=== PATIENT | female | born 1945 | race Caucasian/White ===

== ENCOUNTER 2021-06-02 16:36 | Inpatient (IN) ==
[2021-06-02] MEDS ORDERED: IOPAMIDOL 100 ML BOTTLE IV ONE (16:37)
[2021-06-02] MEDS ORDERED: 0.9 % SODIUM CHLORIDE 1,000 ML IV ONE ×2 (18:15→21:19)
[2021-06-02 18:30] LABS: POC Blood Urea Nitrogen 23 mg/dL (6-20); POC CO2 24 mmol/L (22-30); POC Chloride 95 mEq/L (96-108); POC Creatinine 0.6 mg/dL (0.6-1.2); POC Glucose, Random 120 mg/dL (70-105); POC Hematocrit 45 % (36-48); POC Potassium 4.2 mEql/L (3.3-5.1); POC Sodium 131 mEq/L (133-145)
[2021-06-02 19:02] LABS: Hematocrit 42.7 % (34.1-44.9); Hemoglobin 13.9 g/dL (11.2-15.7); Mean Cell Volume 85.2 fL (80.0-100.0); Mean Corpuscular HGB Conc 32.6 g/dL (31.0-36.0); Mean Platelet Volume 10.6 fL (7.4-10.4); Platelet Count 229 K/mcL (140-440); RBC 5.01 M/mcL (3.59-5.38); Red Cell Distribution Width 16.8 % (11.5-14.5); WBC 3.6 K/mcL (4.5-11.0)
[2021-06-02] MEDS ORDERED: MAGNESIUM SULFATE 2 GM/50 ML BAG IV ONE (19:15)
[2021-06-02 19:28] LABS: Thyroid Stimulating Hormone 0.02 uIU/mL (0.27-5.01)
[2021-06-02] MEDS ORDERED: DILTIAZEM 25 MG/5 ML VIAL IV ONE (19:41)
[2021-06-02] MEDS ORDERED: HYDROcodone/APAP 10/325MG TABLET PO ONE (19:44)
[2021-06-02] MEDS ORDERED: APIXABAN 5 MG TABLET PO ONE (19:44)
--- NOTE | 2021-06-02 19:44 | Emergency Department Note ---
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 Per chart review, she was scheduled for an outpatient bronchoscopy for persistent occlusive neuroendocrine mass in the left chest on 05/31, but on screening labs was diagnosed with Covid 19, so did not undergo her procedure. Her oncologist is Dr. Vieira, and her silk screen operator is Dr. Mclaughlin. They have been evaluating her for possible lung infection and she states that she has been on several courses of oral antibiotic therapies without improvement. It appears that she has a persistent left lower lung consolidation and had been on Cefitin in April. She states that she has been coughing up thick cottage cheese like sputum. She does present in rapid A. fib today. She does have a history of atrial fibrillation on chronic Eliquis therapies. She is not on rate control medications. She denies heart palpitations or symptomatic rapid rhythm. O2 sats are in the high 80s to low 90s on room air. These improved to 94% with 2 L nasal cannula. She reports feeling increasing shortness of breath that is been worsening over weeks to months. She does feel that her breathing has wors ened even more since her COVID-19 diagnosis. She denies N/V/D or other GI symptoms. Related Data Home Medications Medication Instructions Recorded Confirmed lidocaine-prilocaine 2.5 %-2.5 % 1 g TOPICAL g 12/15/20 05/24/21 topical cream apixaban 5 mg tablet 5 mg PO BID tab 05/24/21 05/24/21 hydrocodone 5 mg-acetaminophen 325 tab PO PRN 05/24/21 05/24/21 mg tablet Previous Rx's Medication Instructions Recorded thyroid (pork) 120 mg tablet 120 mg PO QDAY #90 tab 09/21/20 (Aragon Thyroid) albuterol sulfate 90 mcg/actuation 2 puff INHALATION Q4H PRN #18 g 10/27/20 aerosol inhaler (Ventolin HFA) Allergies Allergy/AdvReac Type Severity Reaction Status Date / Time No Known Drug Allergies Allergy Verified 05/24/21 13:52 Review of Systems <Tarsha Shaikh PA-C - Last Filed: 06/02/21 21:15> ROS ROS Narrative: Narrative: All systems ED: reviewed and negative except as stated. PFSH <Tarsha Shaikh PA-C - Last Filed: 06/02/21 21:15> Narrative Patient History Narrative: Narrative: Medical/Surgical/Family History All Active Problems Atelectasis of left lung (Acute) History of primary malignant neoplasm of left lung (Acute) Malignant neoplasm of unspecified part of unspecified bronchus or lung (Acute) Malignant neoplasm of left main bronchus (Acute) Right hip pain (Acute) Small cell carcinoma (Acute) Medicare annual wellness visit, initial (Acute) Cough (Acute) Obstipation (Acute) Neck pain (Chronic) Arm pain (Chronic) Adrenal hyperplasia (Chronic) Pneumonia (Acute) Bronchitis (Acute) Microscopic hematuria (Acute) Generalized osteoarthritis (Chronic) Traumatic neuroma (Acute) Jaw pain (Chronic) Encounter for Health Maintenance Examination in Adult (Chronic) History of hysterectomy (Chronic) History of hand surgery (Chronic) History of colonoscopy (Chronic 11/28/09) History of appendectomy (Chronic) History of tobacco use (Chronic) Synovial cyst (Chronic) Acute poliomyelitis, poliovirus type I (Chronic) Osteoporosis screening (Chronic) Generalized osteoarthritis of unspecified site (Chronic 01/21/13) Numbness and tingling (Chronic) Multiple nevi (Chronic) Benign neoplasm of skin (Chronic) Low back pain (Chronic) Hypothyroidism (Chronic) Hyperthyroidism (Chronic) Colon polyps (Chronic) Cerumen impaction (Chronic) Medical History Acute poliomyelitis, poliovirus type I Past history, no residual Atelectasis of left lung Benign neoplasm of skin Mole History of malignant mole, multiple nevi, followed through Dr Terrance go Right cerumen impaction 12/26/11, instructed in use of ear bulb syringe. Colon polyps 11/28/2009 Colonoscopy--Dr. Rincon--3 hyperplastic polyps. 10-year sequence. 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 Jaw pain Low back pain history of, currently quiescent Malignant neoplasm of left main bronchus Malignant neoplasm of unspecified part of unspecified bronchus or lung Multiple nevi Multiple, followed through Dr Carlos Numbness and tingling Obstipation Osteoporosis screening Historical normal bone density in 2005 with normal Vitamin D level 10/2009. 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 Rincon--3 hyperplastic polyps. 10-year sequence. History of hand surgery 11/2010 Right second finger surgery 11/2010--Dr. Rivas. History of hysterectomy 1980 ovaries remain and bimanual is negative; breast exam stable, declines mammogram Family History Father Family history of coronary artery bypass graft CABG in his 60's, although did not take particularly good care of himself. Diabetes mellitus non insulin dependent Social History Smoking Status: Current every day smoker Alcohol Intake Frequency: a few times a week Substance Use: does not use Exam <Tarsha Shaikh PA-C - Last Filed: 06/02/21 21:15> Narrative Narrative: General: AOx3, NAD, nontoxic appearing. Pleasant and conversant. HEENT: PERRL, EOMI, normocephalic. Moist mucous membranes. Normal facies and normal dentition. Chest: Symmetric, no pain to palpation Respiratory: Coarse breath sounds throughout, crackles are noted in the bilateral bases. No respiratory distress. Unlabored breathing. Heart: Rapid rate and irregular rhythm, no murmurs/clicks/rubs. Abdomen: Non-tender, Non distended, normal bowel tones. No organomegaly. Extremities: Warm and well perfused. No edema. DP 2+ bilaterally. No venous stasis. Neuro: No focal deficits. Cranial nerves II-XII grossly normal. Skin: Warm dry, no rashes or lesions, no cyanosis. Psych: Normal mood and affect Heme/Lymph: No abnormal bruising Course <Tarsha Shaikh PA-C - Last Filed: 06/02/21 21:15> Course Course Narrative: 75-year-old female with history of non-small cell lung cancer and persistent left lower lobe consolidation with recent diagnosis of Covid presents with weakn ess and shortness of breath. Reevaluation(s) Reevaluation #1: EKG shows rapid atrial fibrillation with a rate of [address] acute ischemic ST findings and QTC of 424. Chest x-ray shows left lung mass, right lung appears clear without evidence of infiltrates or effusions. CBC with slightly low white blood cell count of 3600 with neutrophils of 80 Chem-8 panel with sodium 131 Troponin is less than 0.01 Patient received 1 L of IV fluids and her heart rate nay elevated at 134 bpm. Vital Signs Vital signs: Vital Signs Pulse Rate 90 06/02/21 16:37 Respiratory Rate 20 06/02/21 16:37 Blood Pressure 140/97 06/02/21 16:37 Pulse Oximetry (%) 98 06/02/21 16:37 Pulse Rate 133 H 06/03/21 00:27 Respiratory Rate 26 H 06/03/21 00:27 Blood Pressure 115/88 06/03/21 00:07 Pulse Oximetry (%) 92 06/03/21 00:27 MDM <Tarsha Shaikh PA-C - Last Filed: 06/02/21 21:15> MDM Narrative Medical decision making narrative: Chronic left lower lobe consolidation History of non-small cell lung cancer with neuroendocrine features COVID-19 infection Rapid atrial fibrillation Shortness of breath Weakness I discussed this patient with Dr. Hanna at change of shift. He has ordered a CTA of the chest to rule out PE given this patient's high risk. Please see his note for further details and plan of care. Blood cultures and lactic acid have been ordered and are pending to rule out sepsis. Lab Data Result diagrams: 06/02/21 18:05 Labs: Lab Results 06/02/21 06/02/21 06/02/21 Range/Units 18:05 18:05 18:05 WBC 3.6 L (4.5-11.0) K/mcL RBC 5.01 (3.59-5.38) M/mcL Hgb 13.9 (11.2-15.7) g/dL Hct 42.7 (34.1-44.9) % POC Hct 45 (36-48) % MCV 85.2 (80.0-100.0) fL MCH 27.7 (26.0-34.0) pg MCHC 32.6 (31.0-36.0) g/dL RDW 16.8 H (11.5-14.5) % Plt Count 229 (140-440) K/mcL MPV 10.6 H (7.4-10.4) fL Seg Neutrophils % 80 H (38-78) % Lymphocytes % 13 L (15-49) % Monocytes % (Manual) 6 (1-12) % Basophils % (Manual) 1 (0-2) % Platelet Estimate Normal (Normal) RBC Morphology Abnormal A (Normal) Anisocytosis 1+ A (None Seen) POC Sodium 131 L (133-145) mEq/L POC Potassium 4.2 (3.3-5.1) mEql/L POC Chloride 95 L (96-108) mEq/L POC Total CO2 24 (22-30) mmol/L POC BUN 23 H (6-20) mg/dL POC Creatinine 0.6 (0.6-1.2) mg/dL POC Glucose 120 H (70-105) mg/dL POC WB Ioniz Calcium 1.10 L (1.16-1.32) mmEq/L Troponin T < 0.01 (<0.03) ng/mL Procalcitonin (<0.10) ng/mL TSH 0.02 L (0.27-5.01) uIU/mL 06/02/21 Range/Units 18:05 WBC (4.5-11.0) K/mcL RBC (3.59-5.38) M/mcL Hgb (11.2-15.7) g/dL Hct (34.1-44.9) % POC Hct (36-48) % MCV (80.0-100.0) fL MCH (26.0-34.0) pg MCHC (31.0-36.0) g/dL RDW (11.5-14.5) % Plt Count (140-440) K/mcL MPV (7.4-10.4) fL Seg Neutrophils % (38-78) % Lymphocytes % (15-49) % Monocytes % (Manual) (1-12) % Basophils % (Manual) (0-2) % Platelet Estimate (Normal) RBC Morphology (Normal) Anisocytosis (None Seen) POC Sodium (133-145) mEq/L POC Potassium (3.3-5.1) mEql/L POC Chloride (96-108) mEq/L POC Total CO2 (22-30) mmol/L POC BUN (6-20) mg/dL POC Creatinine (0.6-1.2) mg/dL POC Glucose (70-105) mg/dL POC WB Ioniz Calcium (1.16-1.32) mmEq/L Troponin T (<0.03) ng/mL Procalcitonin 0.07 (<0.10) ng/mL TSH (0.27-5.01) uIU/mL Discharge Plan Patient/Caregiver Discharge Instructions Pt seen by GRINDING WHEEL INSPECTOR/PA only: No Patient Disposition: Still a Patient Condition: Undetermined Follow up with: Charles Mackay MD, FAAFP [Primary Care Provider] - Prescriptions: No Action thyroid (pork) [Aragon Thyroid] 120 mg tablet 120 mg PO QDAY Qty: 90 3RF albuterol sulfate [Ventolin HFA] 90 mcg/actuation HFA aerosol inhaler 2 puff inhalation Q4H PRN (Reason: bronchospasm) Qty: 18 8RF hydrocodone-acetaminophen 5-325 mg tablet PO PRN0RF lidocaine-prilocaine 2.5-2.5 % cream 1 g topical 0RF Label Comments: APPLY GENEROURSY 30 MUINUTES PRIOR TO PORT ACCESS apixaban 5 mg tablet 5 mg PO BID 0RF
[2021-06-02] MEDS ORDERED: HYDROcodone/APAP 5/325MG TABLET PO ONE (19:50)
[2021-06-02 20:29] LABS: Anisocytosis 1+ (None Seen); Basophils % (Manual) 1 % (0-2); Lymphocytes % 13 % (15-49); Monocytes % (Manual) 6 % (1-12); Platelet Estimate NORMAL (Normal); RBC Morphology ABNORMAL (Normal); Segmented Neutrophils % 80 % (38-78)
[2021-06-02] MEDS ORDERED: VANCOMYCIN 1,250 MG in 0.9 % SODIUM CHLORIDE 250 ML IV ONE (23:44)
[2021-06-02] MEDS ORDERED: PIPERACILLIN SODIUM/TAZOBACTAM 4.5 GM in DEXTROSE 5% IN WATER 50 ML IV ONE (23:44)
[2021-06-03] MEDS ORDERED: VANCOMYCIN 500 MG VIAL IV ONE (00:16)
[2021-06-03] MEDS ORDERED: DEXAMETHASONE 10 MG/ML VIAL IV ONE (01:08)
[2021-06-03] MEDS ORDERED: ACETAMINOPHEN 325 MG TABLET PO PRN (01:09)
[2021-06-03] MEDS ORDERED: ONDANSETRON 4 MG/2 ML VIAL IV PRN ×2 (01:09→09:04)
--- NOTE | 2021-06-03 01:22 | Emergency Department Note ---
HPI General Chief complaint: Shortness of Breath/Dyspnea Stated complaint: short of breath Time Seen by Provider: 06/02/21 20:03 Source: patient Mode of arrival: ambulatory Limitations: no limitations History of Present Illness HPI Narrative: Narrative: This patient was signed out to me by AGUILAR Shaikh. For full details please see her H&P. In brief this patient presented w/ SOB, tachycardia, hypoxia in setting of known COVID19 w/ recently in remission lung CA. She reports persistent and worsening SOB over the past week since this Dx of COVID. She notes that she has a chronic cough productive of thick phlegm, has been unchanged. She has been treated w/ two long rounds of abx for this w/o improvement and her guard chief was planning on a possible biopsy when COVID was discovered as part of her preop testing. Related Data Home Medications Medication Instructions Recorded Confirmed lidocaine-prilocaine 2.5 %-2.5 % 1 g TOPICAL g 12/15/20 05/24/21 topical cream apixaban 5 mg tablet 5 mg PO BID tab 05/24/21 05/24/21 hydrocodone 5 mg-acetaminophen 325 tab PO PRN 05/24/21 05/24/21 mg tablet Previous Rx's Medication Instructions Recorded thyroid (pork) 120 mg tablet 120 mg PO QDAY #90 tab 09/21/20 ([facility] Thyroid) albuterol sulfate 90 mcg/actuation 2 puff INHALATION Q4H PRN #18 g 10/27/20 aerosol inhaler (Ventolin HFA) Allergies Allergy/AdvReac Type Severity Reaction Status Date / Time No Known Drug Allergies Allergy Verified 05/24/21 13:52 Review of Systems ROS ROS Narrative: Narrative: All systems ED: reviewed and negative except as stated. PFSH Narrative Patient History Narrative: Narrative: Medical/Surgical/Family History All Active Problems (Updated 06/03/21 @ 01:25 by Kwame Hanna MD) Acute dyspnea (Acute) Pneumonia due to 2019 novel coronavirus (Acute) Lung cancer (Acute) Atrial fibrillation with rapid ventricular response (Acute) Atelectasis of left lung (Acute) History of primary malignant neoplasm of left lung (Acute) Malignant neoplasm of unspecified part of unspecified bronchus or lung (Acute) Malignant neoplasm of left main bronchus (Acute) Right hip pain (Acute) Small cell carcinoma (Acute) Medicare annual wellness visit, initial (Acute) Cough (Acute) Obstipation (Acute) Neck pain (Chronic) Arm pain (Chronic) Adrenal hyperplasia (Chronic) Pneumonia (Acute) Bronchitis (Acute) Microscopic hematuria (Acute) Generalized osteoarthritis (Chronic) Traumatic neuroma (Acute) Jaw pain (Chronic) Encounter for Health Maintenance Examination in Adult (Chronic) History of hysterectomy (Chronic) History of hand surgery (Chronic) History of colonoscopy (Chronic 11/28/09) History of appendectomy (Chronic) History of tobacco use (Chronic) Synovial cyst (Chronic) Acute poliomyelitis, poliovirus type I (Chronic) Osteoporosis screening (Chronic) Generalized osteoarthritis of unspecified site (Chronic 01/21/13) Numbness and tingling (Chronic) Multiple nevi (Chronic) Benign neoplasm of skin (Chronic) Low back pain (Chronic) Hypothyroidism (Chronic) Hyperthyroidism (Chronic) Colon polyps (Chronic) Cerumen impaction (Chronic) Medical History Acute poliomyelitis, poliovirus type I Past history, no residual Atelectasis of left lung Benign neoplasm of skin Mole History of malignant mole, multiple nevi, followed through Dr Carlos Cerumen impaction Right cerumen impaction 12/26/11, instructed in use of ear bulb syringe. Colon polyps 11/28/2009 Colonoscopy--Dr. Rincon--3 hyperplastic polyps. 10-year sequence. 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 Jaw pain Low back pain history of, currently quiescent Malignant neoplasm of left main bronchus Malignant neoplasm of unspecified part of unspecified bronchus or lung Multiple nevi Multiple, followed through Dr Carlos Numbness and tingling Obstipation Osteoporosis screening Historical normal bone density in 2005 with normal Vitamin D level 10/2009. 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 10-year sequence. History of hand surgery 11/2010 Right second finger surgery 11/2010--Dr. Rivas. History of hysterectomy 1980 ovaries remain and bimanual is negative; breast exam stable, declines mammogram Family History Father Family history of coronary artery bypass graft CABG in his 60's, although did not take particularly good care of himself. Diabetes mellitus non insulin dependent Social History Smoking Status: Current every day smoker Alcohol Intake Frequency: a few times a week Substance Use: does not use Exam Narrative Narrative: Narrative: General Limitations: no limitations General appearance: Present alert and in no apparent distress Head Head: Present atraumatic and normocephalic ENT ENT: Present normal oropharynx and mucous membranes moist Chest Chest: Present normal inspection and symmetric chest wall rise Respiratory Respiratory: Present normal lung sounds bilaterally; Absent respiratory distress Cardiovascular Cardiovascular: Present irregular rhythm, +S1, +S2 and other (2+ B/L radial pulses); Absent systolic murmur or diastolic murmur Adbominal Abdominal: Present soft and normal bowel sounds; Absent distention or tenderness Extremities Extremities: Absent pedal edema Neurological Neurological: Present alert and oriented X3 Psychiatric Psychiatric: Present normal affect Skin Skin: Present warm (WNL) and dry Course Vital Signs Vital signs: Vital Signs Pulse Rate 90 06/02/21 16:37 Respiratory Rate 20 06/02/21 16:37 Blood Pressure 140/97 06/02/21 16:37 Pulse Oximetry (%) 98 06/02/21 16:37 Pulse Rate 133 H 06/03/21 00:27 Respiratory Rate 22 06/03/21 01:45 Blood Pressure 106/73 06/03/21 01:31 Pulse Oximetry (%) 93 06/03/21 01:31 [facility] MDM Narrative Medical decision making narrative: Narrative: 75 yo F w/ h/o lung CA in remission, hyperthyroidism, p/w SOB, hypoxia, cough in setting of recent COVID19 Dx. DDx - Sepsis, PNA, COVID19, PE, ACS, arrhythmia Pt was initially seen and managed by AGUILAR Shaikh. She started the pt on IVF, which brought the HR down from 160 to 130. She was concerned for ongoing RVR and gave a dose of mag and diltiazem which had minimal effect on HR. She checked labs which showed mild hyponatremia, and a mild leukopenia. EKG showed no ischemia. I then assumed care. On taking sign out I was concerned for the possibility of PE, and checked a CTA chest which showed no PE. There was an infiltrate and evidence of COVID PNA. Given the tachycardia, I checked a lactate and blood cultures and added on empiric abx w/ vanc and zosyn for broad coverage. I also added on a second 1L NS bolus as her BUN:Cr ratio suggested dehydration and this would also fit w/ sepsis fluids. To help delineate between COVID PNA alone vs COVID w/ bacterial PNA, I checked a procalcitonin. This was WNL. Clinically this fit w/ her presentation and I felt that COVID was the main coach driver in her presentation today. I thus added on decadron. She tolerated all interventions well and was accepted by Dr Boudreaux for admission. Lab Data Result diagrams: 06/02/21 18:05 Labs: Lab Results 06/02/21 06/02/21 06/02/21 Range/Units 18:05 18:05 18:05 WBC 3.6 L (4.5-11.0) K/mcL RBC 5.01 (3.59-5.38) M/mcL Hgb 13.9 (11.2-15.7) g/dL Hct 42.7 (34.1-44.9) % POC Hct 45 (36-48) % MCV 85.2 (80.0-100.0) fL MCH 27.7 (26.0-34.0) pg MCHC 32.6 (31.0-36.0) g/dL RDW 16.8 H (11.5-14.5) % Plt Count 229 (140-440) K/mcL MPV 10.6 H (7.4-10.4) fL Seg Neutrophils % 80 H (38-78) % Lymphocytes % 13 L (15-49) % Monocytes % (Manual) 6 (1-12) % Basophils % (Manual) 1 (0-2) % Platelet Estimate Normal (Normal) RBC Morphology Abnormal A (Normal) Anisocytosis 1+ A (None Seen) POC Sodium 131 L (133-145) mEq/L POC Potassium 4.2 (3.3-5.1) mEql/L POC Chloride 95 L (96-108) mEq/L POC Total CO2 24 (22-30) mmol/L POC BUN 23 H (6-20) mg/dL POC Creatinine 0.6 (0.6-1.2) mg/dL POC Glucose 120 H (70-105) mg/dL POC WB Ioniz Calcium 1.10 L (1.16-1.32) mmEq/L Troponin T < 0.01 (<0.03) ng/mL Procalcitonin (<0.10) ng/mL TSH 0.02 L (0.27-5.01) uIU/mL 06/02/21 Range/Units 18:05 WBC (4.5-11.0) K/mcL RBC (3.59-5.38) M/mcL Hgb (11.2-15.7) g/dL Hct (34.1-44.9) % POC Hct (36-48) % MCV (80.0-100.0) fL MCH (26.0-34.0) pg MCHC (31.0-36.0) g/dL RDW (11.5-14.5) % Plt Count (140-440) K/mcL MPV (7.4-10.4) fL Seg Neutrophils % (38-78) % Lymphocytes % (15-49) % Monocytes % (Manual) (1-12) % Basophils % (Manual) (0-2) % Platelet Estimate (Normal) RBC Morphology (Normal) Anisocytosis (None Seen) POC Sodium (133-145) mEq/L POC Potassium (3.3-5.1) mEql/L POC Chloride (96-108) mEq/L POC Total CO2 (22-30) mmol/L POC BUN (6-20) mg/dL POC Creatinine (0.6-1.2) mg/dL POC Glucose (70-105) mg/dL POC WB Ioniz Calcium (1.16-1.32) mmEq/L Troponin T (<0.03) ng/mL Procalcitonin 0.07 (<0.10) ng/mL TSH (0.27-5.01) uIU/mL CC TIME Critical Care Time Attestation: Approximately 35 minutes of critical care time was used in order to assess and manage the high probability of imminent or life threatening deterioration to CVS, pulmonary systems which required my highest level of preparedness and interventions with frequent patient assessments. This time is excluding time spent on separately billable procedures. Discharge Plan Patient/Caregiver Discharge Instructions Pt seen by HYDROBLASTER/PA only: No Clinical Impression: Acute dyspnea, Pneumonia due to 2019 novel coronavirus, Lung cancer, Atrial fibrillation with rapid ventricular response Patient Disposition: Xfer As Inpt ([facility]) Condition: Serious Discharge Date/Time: 06/03/21 01:52
--- NOTE | 2021-06-03 06:51 | XRay Report ---
HISTORY: COVID pneumonia, history of lung cancer, smoker with shortness of breath FINDINGS: The left lung is smaller than the right and there is tenting of the left diaphragm. There is dense consolidation medially in the left upper thorax which may be a combination of atelectasis, scar or possibly residual tumor. There is a generalized ill-defined alveolar opacity throughout the left lung. There is pleural thickening over the apex. The heart size is normal. A subtle alveolar infiltrate is present in the right lower lobe. Patient has a Port-A-Cath placed through the right internal jugular vein into the superior vena cava. IMPRESSION: Possible pneumonia superimposed upon underlying scarring or atelectasis following treatment of previously seen large left-sided lung cancer Interpreted and Authenticated by: Aleksey Jacob 06/03/21
--- NOTE | 2021-06-03 06:57 | Cat Scan Report ---
History, shortness of breath, COVID pneumonia, post radiation and chemotherapy for left-sided lung cancer TECHNIQUE: Following injection of intravenous nonionic contrast the chest was scanned during the arterial phase from the thoracic inlet to the diaphragm. Sagittal and coronal reformats were created. The radiation exposure was limited using dose reduction technology. FINDINGS: There is significant volume loss of the left upper lobe and superior segment of lingula with multiple air bronchograms in these regions. This may be scar and atelectasis following the prior radiation and chemotherapy. The large bulky tumor seen medially in the left upper lobe which invaded the left hilum and mediastinum has shrank and can no longer be seen separate from the surrounding scar tissue. No pathologically enlarged lymph nodes are seen at this time. The encasement of the left upper lobe pulmonary artery and vein seen on the prior CT done on 09/20/20 has resolved. No new lung mass is seen. There is moderate fibrosis and inflammation in the lingula and left lower lobe. Superimposed upon this there are groundglass alveolar infiltrates in both lungs. This is most apparent in the right lung where there is no underlying fibrosis. There is a mosaic distribution of alveolar infiltrates in the right upper lobe, right middle lobe and right lower lobe. Mosaic infiltrates are also seen in the lingula and left lower lobe. There is a tiny left-sided pleural effusion. Pulmonary arteries are normal without evidence of emboli. The heart size is normal. No pericardial effusion is present. The left adrenal gland is enlarged and measures 1.5 x 3.3 cm and there is hyperplasia of the right adrenal. The adrenals are unchanged from the prior CT. Visualized portions of the liver appears normal without evidence of metastasis. IMPRESSION: COVID pneumonia superimposed upon underlying scar tissue after treatment for left-sided lung cancer No residual tumor is detected. Interpreted and Authenticated by: Aleksey Jacob 06/03/21
[2021-06-03] MEDS ORDERED: METOPROLOL TARTRATE 5 MG/5 ML VIAL IV STA (08:05)
[2021-06-03] MEDS: METOPROLOL TARTRATE 5 MG/5 ML VIAL IV SCH (08:40)
[2021-06-03] MEDS ORDERED: HYDROcodone/APAP (PP) 5/325MG TABLET (#4) PO PRN (08:59)
[2021-06-03] MEDS ORDERED: METOPROLOL TARTRATE 25 MG TABLET PO SCH (09:00)
[2021-06-03] MEDS ORDERED: THYROID 120 MG PO SCH (09:00)
[2021-06-03] MEDS ORDERED: HYDROcodone/APAP 5/325MG TABLET PO PRN (09:04)
[2021-06-03] MEDS ORDERED: IPRATROPIUM/ALBUTEROL 3 ML AMPUL.NEB NEB PRN (09:04)
--- NOTE | 2021-06-03 09:15 | Internal Med History&Physical ---
HPI History of Present Illness Patient information: Note initiated : 06/03/21 at 9:10 am Service Date, if different from initiated Date: [] Patient: Calista Dunn a 75 y/o F admitted on 06/03/21 for short of breath. Chief Complaint: [shortness of breath] Chief complaint: shortness of breath History of present illness: Ms. Dunn is a 75 year old F history of left sided lung cancer, permanent atrial fibrillation, hypothyroidism, p/w shortness of breath and oxygen desaturation. She has had shortness of breath and productive cough with yellow sputum since August 2020 following lung biopsy. Last night, her oxygen saturation was in the 60s on room air, so she decided to come to our ED for further evaluation. She also has mild left sided chest pain since August,, stable. Denies fever, chills, or sweating. She was tested positive for CoVID pneumonia last , 05/25/21. She is fully vaccinated against CoVID pneumonia. Vital signs at ED presentation significant for tachycardia and tachypnea with HR and RR in the 130s and mid 20s, respectively. Labs significant for lack of leukocytosis with WBC 3.6. Serum sodium level 131. CXR and CT chest w/o consistent with CoVID pneumonia without signs of superimposing bacterial infection or pulmonary embolism. Constitutional Constitutional: Absent chills, excessive sweating, fatigue, fever(s) or weakness EENT Eyes: Absent blurry vision, change in vision, loss of vision or other visual disturbances Ears: Absent decreased hearing or tinnitus Nose, mouth and throat: Absent abnormal hearing, dry mouth, headache(s), nasal congestion or sore throat Cardiovascular Cardiovascular: Present chest pain; Absent chest pain at rest, edema, irregular heart rhythm or palpatations Respiratory Respiratory: Present cough, dyspnea and excessive phlegm production; Absent wheezing Gastrointestinal Gastrointestinal: Absent abdominal pain, constipation, diarrhea, nausea or vomiting Musculoskeletal Musculoskeletal: Absent back pain, deformity, limited range of motion, muscle cramps, muscle weakness or numbness Integumentary Integumentary: Absent lesions, rash or wounds Neurological Neurological: Absent focal weakness, headache(s) or numbness Psychiatric Psychiatric: Absent anxiety, depression or hallucinations PFSH PFSH All Active Problems (Updated 06/03/21 @ 09:19 by Bridger Boudreaux MD) Hyponatremia (Acute) Acute dyspnea (Acute) Pneumonia due to 2019 novel coronavirus (Acute) Lung cancer (Acute) Atrial fibrillation with rapid ventricular response (Acute) Atelectasis of left lung (Acute) History of primary malignant neoplasm of left lung (Acute) Malignant neoplasm of unspecified part of unspecified bronchus or lung (Acute) Malignant neoplasm of left main bronchus (Acute) Right hip pain (Acute) Small cell carcinoma (Acute) Medicare annual wellness visit, initial (Acute) Cough (Acute) Obstipation (Acute) Neck pain (Chronic) Arm pain (Chronic) Adrenal hyperplasia (Chronic) Pneumonia (Acute) Bronchitis (Acute) Microscopic hematuria (Acute) Generalized osteoarthritis (Chronic) Traumatic neuroma (Acute) Jaw pain (Chronic) Encounter for Health Maintenance Examination in Adult (Chronic) History of hysterectomy (Chronic) History of hand surgery (Chronic) History of colonoscopy (Chronic 11/28/09) History of appendectomy (Chronic) History of tobacco use (Chronic) Synovial cyst (Chronic) Acute poliomyelitis, poliovirus type I (Chronic) Osteoporosis screening (Chronic) Generalized osteoarthritis of unspecified site (Chronic 01/21/13) Numbness and tingling (Chronic) Multiple nevi (Chronic) Benign neoplasm of skin (Chronic) Low back pain (Chronic) Hypothyroidism (Chronic) Hyperthyroidism (Chronic) Colon polyps (Chronic) Cerumen impaction (Chronic) Medical History Acute poliomyelitis, poliovirus type I Past history, no residual Atelectasis of left lung Benign neoplasm of skin Mole History of malignant mole, multiple nevi, followed through Dr Carlos Cerumen impaction Right cerumen impaction 12/26/11, instructed in use of ear bulb syringe. Colon polyps 11/28/2009 Colonoscopy--Dr. Rincon--3 hyperplastic polyps. 10-year sequence. 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 Jaw pain Low back pain history of, currently quiescent Malignant neoplasm of left main bronchus Malignant neoplasm of unspecified part of unspecified bronchus or lung Multiple nevi Multiple, followed through Dr Carlos Numbness and tingling Obstipation Osteoporosis screening Historical normal bone density in 2005 with normal Vitamin D level 10/2009. 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 Rincon--3 hyperplastic polyps. 10-year sequence. History of hand surgery 11/2010 Right second finger surgery 11/2010--Dr. Rivas. History of hysterectomy 1980 ovaries remain and bimanual is negative; breast exam stable, declines mammogram Family History Father Family history of coronary artery bypass graft CABG in his 60's, although did not take particularly good care of himself. Diabetes mellitus non insulin dependent Social History household members: spouse housing: house lives independently: Yes marital status: occupational status: retired other: 5 children smoking status: Current every day smoker tobacco type: cigarettes per day: 15 pack-years: 50 quit status: not considering quitting counseling given: patient declined alcohol intake frequency: a few times a week substance use type: does not use MEDS/ALLERGIES Home Medications and Allergies Home Medications Medication Instructions Recorded Confirmed Type thyroid (pork) 120 mg tablet 120 mg PO QDAY #90 tab 09/21/20 06/03/21 Rx ([place] Thyroid) albuterol sulfate 90 mcg/actuation 2 puff INHALATION Q4H PRN #18 g 10/27/20 06/03/21 Rx aerosol inhaler (Ventolin HFA) lidocaine-prilocaine 2.5 %-2.5 % See Rx Instructions .ROUTE 12/15/20 06/03/21 History topical cream .COMPLEX PRN g apixaban 5 mg tablet 5 mg PO BID tab 05/24/21 06/03/21 History hydrocodone 5 mg-acetaminophen 325 1 tab PO BIDP PRN 05/24/21 06/03/21 History mg tablet Allergies Allergy/AdvReac Type Severity Reaction Status Date / Time No Known Drug Allergies Allergy Verified 05/24/21 13:52 EXAM Constitutional Vitals: Temp Pulse Resp BP Pulse Ox 36.4 C 77 16 132/84 93 06/03/21 08:00 06/03/21 08:00 06/03/21 08:00 06/03/21 08:00 06/03/21 08:00 General appearance: cooperative and no acute distress Head Head exam: Present atraumatic and normocephalic Eye Eye exam: Present EOMI and PERRL ENT ENT exam: Present mucous membranes moist, normal exam and normal external ear exam Neck Neck exam: Present normal inspection; Absent lymphadenopathy, tenderness or thyromegaly Respiratory Respiratory exam: Present decreased breath sounds and rhonchi; Absent accessory muscle use, respiratory distress or wheezes Cardiovascular Cardiovascular exam: Present irregular rhythm and tachycardia; Absent JVD GI/Abdominal GI/Abdominal exam: Present normal bowel sounds and soft; Absent organomegaly or tenderness Extremities Exam Extremities exam: Present full ROM, normal capillary refill and normal inspection; Absent tenderness Neurological Exam Neurological exam: Present alert, CN II-XII intact and oriented X3; Absent motor sensory deficit Psychiatric Psychiatric exam: Present normal affect and normal mood; Absent anxious or depressed Skin Skin exam: Present dry and intact DATA Data Completed and Pending Labs: Labs from last 24 hours 06/02/21 06/02/21 06/02/21 18:05 18:05 18:05 WBC 3.6 L RBC 5.01 Hgb 13.9 Hct 42.7 POC Hct MCV 85.2 MCH 27.7 MCHC 32.6 RDW 16.8 H Plt Count 229 MPV 10.6 H Seg Neutrophils % 80 H Lymphocytes % 13 L Monocytes % (Manual) 6 Basophils % (Manual) 1 Platelet Estimate Normal RBC Morphology Abnormal A Anisocytosis 1+ A POC Sodium POC Potassium POC Chloride POC Total CO2 POC BUN POC Creatinine POC Glucose POC WB Ioniz Calcium Troponin T < 0.01 Procalcitonin 0.07 TSH 06/02/21 18:05 WBC RBC Hgb Hct POC Hct 45 MCV MCH MCHC RDW Plt Count MPV Seg Neutrophils % Lymphocytes % Monocytes % (Manual) Basophils % (Manual) Platelet Estimate RBC Morphology Anisocytosis POC Sodium 131 L POC Potassium 4.2 POC Chloride 95 L POC Total CO2 24 POC BUN 23 H POC Creatinine 0.6 POC Glucose 120 H POC WB Ioniz Calcium 1.10 L Troponin T Procalcitonin TSH 0.02 L A/P Assessment and plan (1) Pneumonia due to 2019 novel coronavirus: Status: Acute (2) Lung cancer: Status: Acute (3) Atrial fibrillation with rapid ventricular response: Status: Acute (4) Hyponatremia: Status: Acute (5) Hypothyroidism: Status: Chronic Comment: H/O hyperthyroidism, 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 CoVID pneumonia: Admit to inpatient med surg telemetry Isolation: airborne and contact Supplemental oxygen therapy titrate to achieve spo2>=92%, currently at 2L/min Lactic acid Inflammatory markers cbc w/ auto diff in the morning to trend WBC level Dexamethasone Remdesivir Eliquis Hold any diuretics for the time being given soft blood pressure Robitussin DM PRN cough Tylenol PRN fever DuoNEB NEB PRN wheezing/SOB 2. 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 Hypothyroidism: Continue thyroid replacement therapy 4. Hyponatremia: Saline lock Repeat CMP in the morning to trend serum sodium level 5. h/o left sided lung cancer: Continue to follow up with oncologist outpatient GI ppx: not currently indicated DVT ppx: Eliquis Code status: DNI Prognosis: guarded Disposition: inpatient med surg telemetry Time Spent With Patient Time: Total time spent is greater than 50% in coordination of care (as documented) at patient's floor/unit and/or counseling patient: Total time spent with greater than 50% in coordination of care (as documented) at patient's floor/unit and/or counseling patient:: Greater than 35 minutes QUALITY Stroke Symptom Onset Unknown: No VTE Deep Vein Thrombosis/Pulmonary Embolism Present on Admission: No
[2021-06-03] MEDS: THYROID, PORK 60 MG TABLET PO SCH ×2 (10:04→10:45)
[2021-06-03] MEDS: THYROID PORK 120 MG PO SCH (10:05)
[2021-06-03] MEDS ORDERED: guaiFENesin/DEXTROMETHORPHAN ORAL SOL PO PRN (10:05)
[2021-06-03 10:32] LABS: ALT/SGPT 18 U/L (<40); AST/SGOT 42 U/L (<32); Albumin 2.9 gm/dL (3.2-5.2); Albumin/Globulin Ratio 0.9 (1.0-2.3); Alkaline Phosphatase 54 U/L (39-117); Bilirubin,Direct < 0.2 mg/dL (0-0.3); Bilirubin,Total 0.3 mg/dL (0.1-1.0); Blood Urea Nitrogen 10 mg/dL (8-23); Calcium 8.4 mg/dL (8.6-10.4); Carbon Dioxide 17 mmol/L (22-30); Chloride 97 mmol/L (96-108); Globulin 3.1 gm/dL (2.2-3.7); Glomerular Filtration Rate 100; Glucose 172 mg/dL (70-105); Lactate Dehydrogenase 419 U/L (135-225); Phosphorous 2.2 mg/dL (2.5-4.5); Triglycerides 76 mg/dL (<150); Uric Acid 3.6 mg/dL (2.5-8.0)
[2021-06-03] MEDS: APIXABAN 5 MG TABLET PO SCH ×2 (10:58→20:59)
[2021-06-03] MEDS: DEXAMETHASONE 4 MG TABLET PO SCH (10:58)
[2021-06-03] MEDS ORDERED: REMDESIVIR 200 MG in 0.9 % SODIUM CHLORIDE 250 ML IV ONE ×2 (11:00→12:00)
[2021-06-03] MEDS: HYDROcodone/APAP 5/325MG TABLET PO PRN ×2 (13:08→21:02)
[2021-06-03] MEDS: 0.9 % SODIUM CHLORIDE 10 ML SYRINGE IV SCH ×2 (14:11→22:00)
[2021-06-03] MEDS: METOPROLOL TARTRATE 5 MG/5 ML VIAL IV PRN ×3 (15:45→16:00)
[2021-06-03] MEDS ORDERED: METOPROLOL TARTRATE 5 MG/5 ML VIAL IV PRN (18:46)
[2021-06-03] MEDS ORDERED: METOPROLOL TARTRATE 50 MG TABLET ONE (19:06)
[2021-06-03] MEDS: LORazepam 1 MG TABLET PO PRN (19:43)
[2021-06-03] MEDS: DOCUSATE SODIUM 100 MG CAPSULE PO SCH (20:59)
[2021-06-03] MEDS: SENNOSIDES 1 TABLET PO SCH (20:59)
[2021-06-03] MEDS: ZOLPIDEM 5 MG TABLET PO PRN (21:00)
[2021-06-03] MEDS: METOPROLOL TARTRATE 25 MG TABLET PO SCH (21:00)
[2021-06-04] MEDS: 0.9 % SODIUM CHLORIDE 10 ML SYRINGE IV SCH ×3 (05:59→21:03)
[2021-06-04 07:03] LABS: Basophils # (Auto) 0.01 K/mcL (0.00-0.30); Basophils % (Auto) 0.2 % (0.0-2.0); Eosinophils # (Auto) 0 K/mcL (0.00-0.70); Eosinophils % (Auto) 0 % (0.0-7.0); Hematocrit 38.1 % (34.1-44.9); Hemoglobin 12.2 g/dL (11.2-15.7); Lymphocytes # (Auto) 0.43 K/mcL (1.50-4.80); Lymphocytes % (Auto) 9.6 % (15.5-49.0); Mean Platelet Volume 10.9 fL (7.4-10.4); Monocytes # (Auto) 0.29 K/mcL (0.10-0.90); Monocytes % (Auto) 6.5 % (1.0-12.0); Neutrophils % (Auto) 83.7 % (38.0-78.0); Platelet Count 237 K/mcL (140-440); RBC 4.43 M/mcL (3.59-5.38); Red Cell Distribution Width 17.1 % (11.5-14.5); WBC 4.5 K/mcL (4.5-11.0)
[2021-06-04 07:12] LABS: ALT/SGPT 29 U/L (<40); AST/SGOT 59 U/L (<32); Albumin 2.8 gm/dL (3.2-5.2); Alkaline Phosphatase 65 U/L (39-117); Bilirubin,Total 0.2 mg/dL (0.1-1.0); Blood Urea Nitrogen 16 mg/dL (8-23); Calcium 8.6 mg/dL (8.6-10.4); Carbon Dioxide 20 mmol/L (22-30); Chloride 103 mmol/L (96-108); Globulin 2.7 gm/dL (2.2-3.7); Glomerular Filtration Rate 100; Glucose 161 mg/dL (70-105); Lactate Dehydrogenase 416 U/L (135-225); Phosphorous 2.6 mg/dL (2.5-4.5)
[2021-06-04 07:26] LABS: INR 1.4 (0.9-1.1); Prothrombin Time 17.4 sec (11.9-14.5)
[2021-06-04] MEDS: THYROID PORK 120 MG PO SCH (07:32)
[2021-06-04] MEDS: METOPROLOL TARTRATE 25 MG TABLET PO SCH ×2 (09:23→21:03)
[2021-06-04] MEDS: APIXABAN 5 MG TABLET PO SCH ×2 (09:23→21:04)
[2021-06-04] MEDS: DEXAMETHASONE 4 MG TABLET PO SCH (09:23)
[2021-06-04] MEDS: REMDESIVIR 100 MG in 0.9 % SODIUM CHLORIDE 250 ML IV SCH (09:23)
[2021-06-04] MEDS: DOCUSATE SODIUM 100 MG CAPSULE PO SCH ×2 (09:23→21:02)
[2021-06-04] MEDS: HYDROcodone/APAP 5/325MG TABLET PO PRN ×2 (09:53→21:04)
--- NOTE | 2021-06-04 10:01 | Internal Med Progress Note ---
SUBJECTIVE Subjective Patient information: Note initiated : 06/04/21 at 9:57 am Service Date, if different from initiated Date: [] Patient: Calista Dunn a 75 y/o F admitted on 06/03/21 for short of breath. Chief Complaint: [] Interval history: Ms. Dunn is a 75 year old F history of left sided lung cancer, permanent atrial fibrillation, hypothyroidism, p/w shortness of breath and oxygen desaturation. She has had shortness of breath and productive cough with yellow sputum since August 2020 following lung biopsy. Last night, her oxygen saturation was in the 60s on room air, so she decided to come to our ED for further evaluation. She also has mild left sided chest pain since August,, stable. Denies fever, chills, or sweating. She was tested positive for CoVID pneumonia last , 05/25/21. She is fully vaccinated against CoVID pneumonia. Vital signs at ED presentation significant for tachycardia and tachypnea with HR and RR in the 130s and mid 20s, respectively. Labs significant for lack of leukocytosis with WBC 3.6. Serum sodium level 131. CXR and CT chest w/o consistent with CoVID pneumonia without signs of superimposing bacterial infection or pulmonary embolism. 06/04: Afebrile overnight. Blood cultures no growth to date. On 6L/min oxygen overnight and now. Denies SOB. Denies cough or sputum production or wheezing. Denies chest pain. Denies fever, chills, or sweating. On Dexamethasone and Remdesivir. Constitutional Vitals: Vital Signs Temp Pulse Resp BP Pulse Ox 35.9 C L 118 H 20 137/107 95 06/04/21 08:01 06/04/21 06:01 06/04/21 08:01 06/04/21 08:01 06/04/21 08:01 Period Temp Pulse Resp BP Sys/Thomas Pulse Ox Last 24 Hr 35.8 C-36.9 C 39-138 16-36 94-137/59-107 85-98 Intake and Output 06/03/21 06/04/21 06/04/21 21:59 05:59 13:59 Intake Total 400 790 Output Total 1450 702 250 Balance -1050 88 -250 Weight 66.678 kg Intake & Output: Intake & Output 06/03/21 06/04/21 06/04/21 21:59 05:59 13:59 Intake Total 400 790 Output Total 1450 702 250 Balance -1050 88 -250 Weight 66.678 kg Intake: Nourishment/Supplement quantity 240 (ml) IV 250 Veklury 200 mg In Sodium 250 Chloride 0.9% 250 ml @ 500 mls/ hr IV ONCE ONE Rx#:[id number] Oral 400 300 Output: Void Amount 1450 700 250 # of times incontinent of urine 2 Other: Meal Lunch Percent of Meal Consumed 75% Nourishment/Supplement name Ensure Urine Appearance Clear Clear Clear Urine Color Bright Yellow Bright Yellow Dark Yellow Urine Odor Normal Normal Stool Size Small Stool Color Brown Stool Consistency Formed # Voids 1 # Bowel Movements 1 General appearance: average body habitus, cooperative and no acute distress Head Head exam: Present atraumatic and normal inspection Eye Eye exam: Present normal appearance ENT ENT exam: Present mucous membranes moist, normal exam and normal external ear exam Additional comments: Nasal cannula in place Neck Neck exam: Present normal inspection Respiratory Respiratory exam: Present rhonchi Cardiovascular Cardiovascular exam: Present irregular rhythm and tachycardia GI/Abdominal GI/Abdominal exam: Present normal bowel sounds Back Exam Back exam: Present normal inspection Neurological Exam Neurological exam: Present alert and oriented X3 Skin Skin exam: Present intact and warm OBJ DATA Labs CBC & Chem 7: 06/04/21 05:56 06/04/21 05:56 Labs: Abnormal Lab Results 06/04/21 06/04/21 06/04/21 05:56 05:56 05:42 WBC RDW 17.1 H MPV 10.9 H Neut % (Auto) 83.7 H Lymph % (Auto) 9.6 L Lymph # (Auto) 0.43 L Seg Neutrophils % Lymphocytes % RBC Morphology Anisocytosis PT 17.4 H INR 1.4 H Fibrinogen 440 H D-Dimer 0.56 H POC Sodium Sodium POC Chloride Carbon Dioxide 20 L POC BUN Creatinine 0.4 L Glucose 161 H POC Glucose Calcium POC WB Ioniz Calcium Phosphorus Ferritin 1937.0 H AST 59 H Lactate Dehydrogenase 416 H C-Reactive Protein 5.60 H Total Protein 5.5 L Albumin 2.8 L Albumin/Globulin Ratio TSH 06/03/21 06/02/21 06/02/21 09:27 18:05 18:05 WBC 3.6 L RDW 16.8 H MPV 10.6 H Neut % (Auto) Lymph % (Auto) Lymph # (Auto) Seg Neutrophils % 80 H Lymphocytes % 13 L RBC Morphology Abnormal A Anisocytosis 1+ A PT INR Fibrinogen D-Dimer POC Sodium 131 L Sodium 128 L POC Chloride 95 L Carbon Dioxide 17 L POC BUN 23 H Creatinine 0.4 L Glucose 172 H POC Glucose 120 H Calcium 8.4 L POC WB Ioniz Calcium 1.10 L Phosphorus 2.2 L Ferritin AST 42 H Lactate Dehydrogenase 419 H C-Reactive Protein Total Protein Albumin 2.9 L Albumin/Globulin Ratio 0.9 L TSH 0.02 L Meds: Medications Acetaminophen (Acetaminophen 325 Mg Tablet) 650 mg PO Q6HP PRN; Protocol PRN Reason: Per Pain Protocol/Fever > 101 Hydrocodone Bitart/Acetaminophen (Hydrocodone/Apap 5/325mg Tablet) 2 tab PO BIDP PRN; Protocol PRN Reason: Pain Last Admin: 06/04/21 09:53 Dose: 2 tab Documented by: Albuterol/Ipratropium (Ipratropium/Albuterol 3 Ml Ampul.Neb) 3 ml NEB Q4HRT PRN PRN Reason: Wheezing Apixaban (Apixaban 5 Mg Tablet) 5 mg PO BID [facility] Last Admin: 06/04/21 09:23 Dose: 5 mg Documented by: Dexamethasone (Dexamethasone 4 Mg Tablet) 6 mg PO DAILY [facility] Last Admin: 06/04/21 09:23 Dose: 6 mg Documented by: Docusate Sodium (Docusate Sodium 100 Mg Capsule) 100 mg PO BID [facility] Last Admin: 06/04/21 09:23 Dose: 100 mg Documented by: Guaifenesin (Guaifenesin/Dextromethorphan Oral Katerine) 10 ml PO Q4HP PRN PRN Reason: Cough REMDESIVIR 100 mg/ Sodium (Chloride) 250 mls @ 500 mls/hr IV DAILY@1000 [facility] Stop: 06/07/21 10:29 Last Admin: 06/04/21 09:23 Dose: 500 mls/hr Documented by: Lorazepam (Lorazepam 1 Mg Tablet) 1 mg PO Q6HP PRN PRN Reason: ANXIETY/SEDATION Last Admin: 06/03/21 19:43 Dose: 1 mg Documented by: Metoprolol Tartrate (Metoprolol Tartrate 25 Mg Tablet) 50 mg PO BID [facility] Last Admin: 06/04/21 09:23 Dose: 50 mg Documented by: Ondansetron HCl (Ondansetron 4 Mg/2 Ml Vial) 4 mg IV Q6HP PRN PRN Reason: Nausea And Vomiting Thyroid, Pork 120 Mg (Tablet) 1 dose PO ACB [facility] Last Admin: 06/04/21 07:32 Dose: 1 dose Documented by: Senna (Sennosides 1 Tablet) 2 tab PO HS [facility] Last Admin: 06/03/21 20:59 Dose: 2 tab Documented by: Sodium Chloride (0.9 % Sodium Chloride 10 Ml Syringe) 10 ml IV Q8 [facility] Last Admin: 06/04/21 05:59 Dose: 10 ml Documented by: Zolpidem Tartrate (Zolpidem 5 Mg Tablet) 5 mg PO HSP PRN PRN Reason: Insomnia Last Admin: 06/03/21 21:00 Dose: 5 mg Documented by: A/P Assessment and plan (1) Pneumonia due to 2019 novel coronavirus: Status: Acute (2) Lung cancer: Status: Acute (3) Atrial fibrillation with rapid ventricular response: Status: Acute (4) Hyponatremia: Status: Acute (5) Hypothyroidism: Status: Chronic Comment: H/O hyperthyroidism, 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 CoVID pneumonia: Stays in inpatient med surg telemetry Isolation: airborne and contact Supplemental oxygen therapy titrate to achieve spo2>=92%, currently at 6L/min Lactic acid Inflammatory markers Blood cultures, no growth to date cbc w/ auto diff in the morning to trend WBC level Dexamethasone Remdesivir Eliquis Hold any diuretics for the time being given soft blood pressure Robitussin DM PRN cough Tylenol PRN fever DuoNEB NEB PRN wheezing/SOB 2. Permanent atrial fibrillation w/ RVR: Lopressor 5mg IV q5min X3 doses PRN HR>120bpm, hold if SBP<90 and/or DBP<50mmHg Metoprolol tartrate 50mg PO BID Eliquis Continue thyroid replacement therapy traffic monitor specialist 3. Hypothyroidism: Continue thyroid replacement therapy 4. Hyponatremia: RESOLVED Saline lock Repeat CMP in the morning to trend serum sodium level 5. h/o left sided lung cancer: Continue to follow up with oncologist outpatient GI ppx: not currently indicated DVT ppx: Eliquis Code status: Full Prognosis: guarded Disposition: inpatient PCU telemetry Time Spent With Patient Time: Total time spent is greater than 50% in coordination of care (as documented) at patient's floor/unit and/or counseling patient: Total time spent with greater than 50% in coordination of care (as documented) at patient's floor/unit and/or counseling patient:: Greater than 35 minutes QUALITY Stroke Symptom Onset Unknown: No VTE Deep Vein Thrombosis/Pulmonary Embolism Present on Admission: No
[2021-06-04] MEDS: METOPROLOL TARTRATE 5 MG/5 ML VIAL IV PRN ×3 (19:28→21:01)
[2021-06-04] MEDS ORDERED: METOPROLOL TARTRATE 5 MG/5 ML VIAL IV ONE ×2 (19:32→19:59)
[2021-06-04] MEDS: LORazepam 1 MG TABLET PO PRN (19:58)
[2021-06-04] MEDS: SENNOSIDES 1 TABLET PO SCH (21:03)
[2021-06-04] MEDS: ZOLPIDEM 5 MG TABLET PO PRN (23:19)
[2021-06-05] MEDS: 0.9 % SODIUM CHLORIDE 10 ML SYRINGE IV SCH ×5 (05:54→22:50)
[2021-06-05 06:31] LABS: Basophils # (Auto) 0.01 K/mcL (0.00-0.30); Basophils % (Auto) 0.1 % (0.0-2.0); Eosinophils # (Auto) 0 K/mcL (0.00-0.70); Eosinophils % (Auto) 0 % (0.0-7.0); Hematocrit 41.6 % (34.1-44.9); Hemoglobin 12.9 g/dL (11.2-15.7); Lymphocytes # (Auto) 0.44 K/mcL (1.50-4.80); Lymphocytes % (Auto) 4.4 % (15.5-49.0); Mean Cell Volume 88.3 fL (80.0-100.0); Mean Platelet Volume 11.1 fL (7.4-10.4); Monocytes # (Auto) 0.61 K/mcL (0.10-0.90); Monocytes % (Auto) 6.1 % (1.0-12.0); Neutrophils % (Auto) 89.4 % (38.0-78.0); Platelet Count 258 K/mcL (140-440); RBC 4.71 M/mcL (3.59-5.38); Red Cell Distribution Width 17.5 % (11.5-14.5)
[2021-06-05] MEDS: THYROID PORK 120 MG PO SCH (06:42)
[2021-06-05 07:09] LABS: ALT/SGPT 41 U/L (<40); AST/SGOT 62 U/L (<32); Albumin 3.1 gm/dL (3.2-5.2); Albumin/Globulin Ratio 1.1 (1.0-2.3); Alkaline Phosphatase 87 U/L (39-117); Bilirubin,Total 0.3 mg/dL (0.1-1.0); Blood Urea Nitrogen 22 mg/dL (8-23); Carbon Dioxide 21 mmol/L (22-30); Chloride 98 mmol/L (96-108); Globulin 2.9 gm/dL (2.2-3.7); Glomerular Filtration Rate 93; Glucose 146 mg/dL (70-105); Phosphorous 3.7 mg/dL (2.5-4.5)
[2021-06-05] MEDS: METOPROLOL TARTRATE 25 MG TABLET PO SCH (08:04)
[2021-06-05] MEDS: APIXABAN 5 MG TABLET PO SCH ×2 (08:04→19:46)
[2021-06-05] MEDS: DEXAMETHASONE 4 MG TABLET PO SCH (08:04)
[2021-06-05] MEDS: DOCUSATE SODIUM 100 MG CAPSULE PO SCH ×2 (08:04→19:46)
[2021-06-05] MEDS ORDERED: DILTIAZEM 25 MG/5 ML VIAL IV ONE ×2 (08:24→08:37)
--- NOTE | 2021-06-05 08:29 | Internal Med Progress Note ---
SUBJECTIVE Subjective Patient information: Note initiated : 06/05/21 at 8:25 am Service Date, if different from initiated Date: [] Patient: Calista Dunn a 75 y/o F admitted on 06/03/21 for short of breath. Chief Complaint: [] Interval history: Ms. uDnn is a 75 year old F history of left sided lung cancer, permanent atrial fibrillation, hypothyroidism, p/w shortness of breath and oxygen desaturation. She has had shortness of breath and productive cough with yellow sputum since August 2020 following lung biopsy. Last night, her oxygen saturation was in the 60s on room air, so she decided to come to our ED for further evaluation. She also has mild left sided chest pain since August,, stable. Denies fever, chills, or sweating. She was tested positive for CoVID pneumonia last , 05/25/21. She is fully vaccinated against CoVID pneumonia. Vital signs at ED presentation significant for tachycardia and tachypnea with HR and RR in the 130s and mid 20s, respectively. Labs significant for lack of leukocytosis with WBC 3.6. Serum sodium level 131. CXR and CT chest w/o consistent with CoVID pneumonia without signs of superimposing bacterial infection or pulmonary embolism. 06/04: Afebrile overnight. Blood cultures no growth to date. On 6L/min oxygen overnight and now. Denies SOB. Denies cough or sputum production or wheezing. Denies chest pain. Denies fever, chills, or sweating. On Dexamethasone and Remdesivir. 06/05: Afebrile overnight. Blood cultures no growth to date. Currently on 15L/min nonrebreather oxygen. Tachycardia with HR in the 150s bpm. c/o anxiety and agitation. c/o SOB with cough. Denies chest pain. Denies fever, chills, or sweating. On Dexamethasone and Remdesivir. Will given Cardizem IV push followed by Cardizem drip. Will upgrade to ICU level of care. Constitutional Vitals: Vital Signs Temp Pulse Resp BP Pulse Ox 35.8 C L 122 H 25 H 126/93 94 06/05/21 04:01 06/05/21 00:40 06/05/21 06:00 06/05/21 04:01 06/05/21 06:00 Period Temp Pulse Resp BP Sys/Thomas Pulse Ox Last 24 Hr 35.6 C-36.4 C 56-144 15-33 108-157/91-118 85-97 Intake and Output 06/04/21 06/05/21 06/05/21 21:59 05:59 13:59 Intake Total 340 800 Output Total 700 340 1 Balance -360 460 -1 Weight 66.497 kg Intake & Output: Intake & Output 06/04/21 06/05/21 06/05/21 21:59 05:59 13:59 Intake Total 340 800 Output Total 700 340 1 Balance -360 460 -1 Weight 66.497 kg Intake: Oral 340 800 Output: Void Amount 700 340 # of times incontinent of urine 1 Other: Urine Appearance Clear Clear Urine Color Bright Yellow Straw Stool Size Small Large Stool Color Brown Brown Stool Consistency Formed Dry and Hard # Bowel Movements 1 General appearance: average body habitus and moderate distress Head Head exam: Present atraumatic and normal inspection Eye Eye exam: Present normal appearance ENT ENT exam: Present mucous membranes moist, normal exam and normal external ear exam Additional comments: nonrebreather oxygen in place Neck Neck exam: Present normal inspection Respiratory Respiratory exam: Present rhonchi Additional comments: increased work of breathing Cardiovascular Cardiovascular exam: Present irregular rhythm and tachycardia GI/Abdominal GI/Abdominal exam: Present normal bowel sounds Back Exam Back exam: Present normal inspection Neurological Exam Neurological exam: Present alert and oriented X3 Skin Skin exam: Present intact and warm OBJ DATA Labs CBC & Chem 7: 06/05/21 05:42 06/05/21 05:42 Labs: Abnormal Lab Results 06/05/21 06/05/21 06/04/21 05:42 05:42 05:56 WBC RDW 17.5 H MPV 11.1 H Neut % (Auto) 89.4 H Lymph % (Auto) 4.4 L Lymph # (Auto) 0.44 L Seg Neutrophils % Lymphocytes % Absolute Neutrophils 8.91 H RBC Morphology Anisocytosis PT INR Fibrinogen D-Dimer POC Sodium Sodium POC Chloride Carbon Dioxide 21 L 20 L POC BUN Creatinine 0.5 L 0.4 L Glucose 146 H 161 H POC Glucose Calcium POC WB Ioniz Calcium Phosphorus Ferritin 1937.0 H AST 62 H 59 H ALT 41 H Lactate Dehydrogenase 416 H C-Reactive Protein 5.60 H Total Protein 5.5 L Albumin 3.1 L 2.8 L Albumin/Globulin Ratio TSH 06/04/21 06/04/21 06/03/21 05:56 05:42 09:27 WBC RDW 17.1 H MPV 10.9 H Neut % (Auto) 83.7 H Lymph % (Auto) 9.6 L Lymph # (Auto) 0.43 L Seg Neutrophils % Lymphocytes % Absolute Neutrophils RBC Morphology Anisocytosis PT 17.4 H INR 1.4 H Fibrinogen 440 H D-Dimer 0.56 H POC Sodium Sodium 128 L POC Chloride Carbon Dioxide 17 L POC BUN Creatinine 0.4 L Glucose 172 H POC Glucose Calcium 8.4 L POC WB Ioniz Calcium Phosphorus 2.2 L Ferritin AST 42 H ALT Lactate Dehydrogenase 419 H C-Reactive Protein Total Protein Albumin 2.9 L Albumin/Globulin Ratio 0.9 L TSH 06/02/21 06/02/21 18:05 18:05 WBC 3.6 L RDW 16.8 H MPV 10.6 H Neut % (Auto) Lymph % (Auto) Lymph # (Auto) Seg Neutrophils % 80 H Lymphocytes % 13 L Absolute Neutrophils RBC Morphology Abnormal A Anisocytosis 1+ A PT INR Fibrinogen D-Dimer POC Sodium 131 L Sodium POC Chloride 95 L Carbon Dioxide POC BUN 23 H Creatinine Glucose POC Glucose 120 H Calcium POC WB Ioniz Calcium 1.10 L Phosphorus Ferritin AST ALT Lactate Dehydrogenase C-Reactive Protein Total Protein Albumin Albumin/Globulin Ratio TSH 0.02 L Meds: Medications Acetaminophen (Acetaminophen 325 Mg Tablet) 650 mg PO Q6HP PRN; Protocol PRN Reason: Per Pain Protocol/Fever > 101 Hydrocodone Bitart/Acetaminophen (Hydrocodone/Apap 5/325mg Tablet) 2 tab PO BIDP PRN; Protocol PRN Reason: Pain Last Admin: 06/04/21 21:04 Dose: 2 tab Documented by: Albuterol/Ipratropium (Ipratropium/Albuterol 3 Ml Ampul.Neb) 3 ml NEB Q4HRT PRN PRN Reason: Wheezing Last Admin: 06/05/21 02:50 Dose: 3 ml Documented by: Apixaban (Apixaban 5 Mg Tablet) 5 mg PO BID [facility] Last Admin: 06/05/21 08:04 Dose: 5 mg Documented by: Dexamethasone (Dexamethasone 4 Mg Tablet) 6 mg PO DAILY [facility] Last Admin: 06/05/21 08:04 Dose: 6 mg Documented by: Docusate Sodium (Docusate Sodium 100 Mg Capsule) 100 mg PO BID [facility] Last Admin: 06/05/21 08:04 Dose: 100 mg Documented by: Guaifenesin (Guaifenesin/Dextromethorphan Oral Katerine) 10 ml PO Q4HP PRN PRN Reason: Cough REMDESIVIR 100 mg/ Sodium (Chloride) 250 mls @ 500 mls/hr IV DAILY@1000 [facility] Stop: 06/07/21 10:29 Last Infusion: 06/04/21 10:00 Dose: Infused Documented by: Lorazepam (Lorazepam 1 Mg Tablet) 1 mg PO Q6HP PRN PRN Reason: ANXIETY/SEDATION Last Admin: 06/04/21 19:58 Dose: 1 mg Documented by: Metoprolol Tartrate (Metoprolol Tartrate 25 Mg Tablet) 100 mg PO BID [facility] Last Admin: 06/05/21 08:04 Dose: 100 mg Documented by: Ondansetron HCl (Ondansetron 4 Mg/2 Ml Vial) 4 mg IV Q6HP PRN PRN Reason: Nausea And Vomiting Thyroid, Pork 120 Mg (Tablet) 1 dose PO ACB [facility] Last Admin: 06/05/21 06:42 Dose: 1 dose Documented by: Senna (Sennosides 1 Tablet) 2 tab PO HS [facility] Last Admin: 06/04/21 21:03 Dose: 2 tab Documented by: Sodium Chloride (0.9 % Sodium Chloride 10 Ml Syringe) 10 ml IV Q8 [facility] Last Admin: 06/05/21 05:54 Dose: 10 ml Documented by: Zolpidem Tartrate (Zolpidem 5 Mg Tablet) 5 mg PO HSP PRN PRN Reason: Insomnia Last Admin: 06/04/21 23:19 Dose: 5 mg Documented by: A/P Assessment and plan (1) Pneumonia due to 2019 novel coronavirus: Status: Acute (2) Lung cancer: Status: Acute (3) Atrial fibrillation with rapid ventricular response: Status: Acute (4) Hyponatremia: Status: Acute (5) Hypothyroidism: Status: Chronic Comment: H/O hyperthyroidism, 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 CoVID pneumonia: Transfer to inpatient ICU telemetry Isolation: airborne and contact Supplemental oxygen therapy titrate to achieve spo2>=92%, currently on nonrebreather oxygen 15L/min, will switch to high flow oxygen for better ventilatory support Lactic acid Inflammatory markers Blood cultures, no growth to date cbc w/ auto diff in the morning to trend WBC level Dexamethasone Remdesivir Eliquis Hold any diuretics for the time being given soft blood pressure Robitussin DM PRN cough Tylenol PRN fever DuoNEB NEB PRN wheezing/SOB 2. Permanent atrial fibrillation w/ RVR: Cardizem 10mg IV push once Cardizem drip to follow Metoprolol tartrate 100mg PO BID Eliquis Continue thyroid replacement therapy hospital monitor 3. Hypothyroidism: Continue thyroid replacement therapy 4. Hyponatremia: RESOLVED Saline lock Repeat CMP in the morning to trend serum sodium level 5. h/o left sided lung cancer: Continue to follow up with oncologist outpatient GI ppx: IV Protonix DVT ppx: Eliquis Code status: Full Prognosis: extremely guarded Disposition: inpatient ICU telemetry Critical Care Time: 1hr Time Spent With Patient Time: Total time spent is greater than 50% in coordination of care (as documented) at patient's floor/unit and/or counseling patient: Total time spent with greater than 50% in coordination of care (as documented) at patient's floor/unit and/or counseling patient:: Greater than 35 minutes QUALITY Stroke Symptom Onset Unknown: No VTE Deep Vein Thrombosis/Pulmonary Embolism Present on Admission: No
[2021-06-05] MEDS ORDERED: TOCILIZUMAB 800 MG in 0.9 % SODIUM CHLORIDE 60 ML IV ONE (08:55)
[2021-06-05] MEDS ORDERED: BARICITINIB 2 MG TABLET PO SCH (09:00)
[2021-06-05] MEDS: DILTIAZEM 125 MG in DEXTROSE 5% IN WATER 100 ML IV SCH ×2 (09:02→10:35)
[2021-06-05] MEDS: PANTOPRAZOLE 40 MG VIAL IV SCH (09:04)
[2021-06-05] MEDS: LORazepam 2 MG/ML VIAL IV PRN (09:28)
[2021-06-05] MEDS ORDERED: HALOPERIDOL LACTATE 5 MG/ML VIAL IM ONE (09:30)
[2021-06-05] MEDS ORDERED: HALOPERIDOL LACTATE 5 MG/ML VIAL ONE (09:30)
[2021-06-05] MEDS ORDERED: DEXMEDETOMIDINE 400 MCG in PREMIX 1 BAG IV SCH (09:30)
--- NOTE | 2021-06-05 09:34 | XRay Report ---
CLINICAL INFORMATION: Covid pneumonia. History of lung carcinoma. History of smoking. COMPARISON: 10/01/2020 TECHNIQUE: PA and Lateral views FINDINGS: Cardiomediastinal silhouette remains normal. Right IJ Port-A-Cath tip in stable satisfactory position at the SVC right atrial junction. Increased pleural/parenchymal density in the left apex with overall left lung volume loss likely represents fibrosis following treatment of known carcinoma in this region. Residual tumor not excluded. Since the prior examination just three days ago, diffuse infiltrates have developed sparing only the periphery of both lungs. No effusions. IMPRESSION: Diffuse bilateral infiltrates with peripheral sparing. These have progressed dramatically since the comparison x-ray three days ago and a compatible Covid pneumonia or aspiration. Interpreted and Authenticated by: Ricki Richardson 06/05/21
[2021-06-05] MEDS ORDERED: DEXMEDETOMIDINE 100 ML IV ONE (10:29)
[2021-06-05] MEDS: REMDESIVIR 100 MG in 0.9 % SODIUM CHLORIDE 250 ML IV SCH (10:34)
--- NOTE | 2021-06-05 11:02 | EKG ---
[facility] Test Date: 2021-06-02 Pat Name: Calista Dunn Department: ED Room: Gender: Female T[employer] Installer: : 1945 Requested By: Carlo Coreas Order Number: [id number] Reading MD: Ricki Jacob M.D. Measurements Intervals [place] Rate: 162 P: NM: QRS: -13 QRSD: 74 T: 80 QT: 258 QTc: 424 Interpretive Statements Atrial fibrillation with rapid V-rate Low voltage, extremity leads Electronically Signed On 06-05-2021 11:02:29 PST by Ricki Jacob M.D. /store/[email or web address]/[id number]
--- NOTE | 2021-06-05 11:17 | EKG ---
[facility] Test Date: 2021-06-03 Pat Name: Calista Dunn Department: [facility] Room: 111 Gender: Female Occupational Physician: : 1945 Requested By: Bridger Boudreaux Order Number: [id number] Reading MD: Ricki Jacob M.D. Measurements Intervals [place] Rate: 123 P: TN: QRS: -5 QRSD: 79 T: 37 QT: 297 QTc: 425 Interpretive Statements Atrial fibrillation Low voltage, extremity and precordial leads Electronically Signed On 06-05-2021 11:16:55 PST by Ricki Jacob M.D. /store/[email or web address]/[id number]
[2021-06-05] MEDS ORDERED: TOCILIZUMAB 600 MG in 0.9 % SODIUM CHLORIDE 70 ML IV ONE (12:00)
[2021-06-05] MEDS ORDERED: FUROSEMIDE 20 MG/2 ML VIAL IV SCH (16:00)
[2021-06-05] MEDS ORDERED: 0.9 % SODIUM CHLORIDE 1,000 ML IV SCH (16:30)
[2021-06-05] MEDS: 0.9 % SODIUM CHLORIDE 1,000 ML IV SCH ×2 (16:45→23:24)
[2021-06-05] MEDS ORDERED: NOREPINEPHRINE BITARTRATE 8 MG in 0.9 % SODIUM CHLORIDE 242 ML IV SCH (17:00)
[2021-06-05] MEDS ORDERED: MIDAZOLAM HCL 50 MG in 0.9 % SODIUM CHLORIDE 90 ML IV SCH (17:00)
[2021-06-05] MEDS ORDERED: fentaNYL 2,500 MCG in 0.9 % SODIUM CHLORIDE 200 ML IV SCH (17:00)
[2021-06-05] MEDS ORDERED: NOREPINEPHRINE BITARTRATE 4 MG/4 ML VIAL IV ONE (17:00)
[2021-06-05] MEDS: NOREPINEPHRINE BITARTRATE 16 MG in 0.9 % SODIUM CHLORIDE 234 ML IV SCH (17:00)
--- NOTE | 2021-06-05 17:26 | Emergency Department Note ---
ED Note Addendum Note Addendum: I responded to the intensive care unit to the patient's bedside as a CODE BLUE was called. When I arrived Dr. Boudreaux was at bedside directing resuscitation. The patient was hypotensive hypoxemic and appear to be having agonal respirations. Dr. Boudreaux requested I intubate the patient. Intubation Patient was preoxygenated with bag mask ventilation and high flow nasal cannula. She was given premedication of 10 mcg of IV push epinephrine due to her hypotension. She was given etomidate for sedation and rocuronium for paralysis. A 3 Roberto laryngoscope was introduced into the oropharynx and a grade 2 view of the glottic structures was easily obtained. A gum elastic bougie was passed through the cords under direct visualization with positive hold-up. A 7.5 endotracheal tube was then advanced over the bougie using Seldinger technique and secured. Tube placement was confirmed with condensation in the tube and good waveform capnography. No complications were observed.
--- NOTE | 2021-06-05 17:31 | Emergency Department Note ---
ED Note Addendum Note Addendum: Clarification: Diagnosis should read 1: Hypoxemic respiratory failure.
[2021-06-05] MEDS ORDERED: SODIUM BICARBONATE 50 MEQ/50 ML VIAL IV ONE ×3 (17:52→19:33)
--- NOTE | 2021-06-05 17:54 | XRay Report ---
CLINICAL INFORMATION: Follow-up pneumonia COMPARISON: Portable 06/05/2021 and 33 hours TECHNIQUE: Portable FINDINGS: Endotracheal tube is been placed the tip is in the right mainstem bronchus. OG tube extends to the gastric body. Right IV. Port-A-Cath is stable satisfactory position. Cardiomediastinal silhouette remains normal. Right IJ Port-A-Cath tip in stable satisfactory position at the SVC right atrial junction. Increased pleural/parenchymal density in the left apex with overall left lung volume loss likely represents fibrosis following treatment of known carcinoma in this region. Residual tumor not excluded. Since exam earlier today, diffuse bilateral infiltrates show moderate improvement in aeration. No effusions. IMPRESSION: Malpositioned endotracheal tube at the right mainstem bronchus orifice. ICU nurse instructed to withdraw the tube 4 cm. OG tube extends to the gastric body. Marked improvement in diffuse bilateral infiltrates since exam earlier today. Interpreted and Authenticated by: Ricki Richardson 06/05/21
[2021-06-05] MEDS: VASOPRESSIN 20 UNIT in DEXTROSE 5% IN WATER 99 ML IV SCH (18:30)
[2021-06-05] MEDS ORDERED: VASOPRESSIN 20 UNIT/ML VIAL ONE ×2 (18:35→23:10)
[2021-06-05] MEDS ORDERED: 0.9 % SODIUM CHLORIDE 1,000 ML IV ONE ×3 (19:05→21:44)
[2021-06-05] MEDS ORDERED: SODIUM BICARBONATE 50 MEQ/50 ML VIAL ONE (19:43)
[2021-06-05] MEDS: SENNOSIDES 1 TABLET PO SCH (19:46)
[2021-06-05] MEDS ORDERED: 0.9 % SODIUM CHLORIDE 10 ML SYRINGE IV PRN (20:50)
--- NOTE | 2021-06-05 21:06 | Procedure Note ---
Procedures - Central Line Placement Right IJ Date of Procedure: 06/05/21 (Placed emergently) Time out performed: Yes Patient placed on monitor/pulse ox: Yes MD prep: mask, sterile gown, sterile gloves, cap Central line prep: 2% Chlorhexidine scrub, large sterile drapes applied, proper hand hygiene Ultrasound used for placement: Yes Central line lumen inserted: quad, 16 cm Post procedure: sutured in place, good blood return, all ports aspirated, flushed, capped, sterile dressing applied Patient tolerated procedure: no complications Additional comments: Central line placed by anesthesia at hospitalist request. CVL placed without difficulty. Hospitalist to obtain CXR and manage.
[2021-06-05] MEDS ORDERED: DEXTROSE 50% 50 ML VIAL IV ONE ×4 (23:05→23:39)
[2021-06-05] MEDS: PIPERACILLIN SODIUM/TAZOBACTAM 3.375 GM in DEXTROSE 5% IN WATER 50 ML IV SCH (23:43)
[2021-06-06] MEDS ORDERED: VANCOMYCIN 1,000 MG in 0.9 % SODIUM CHLORIDE 250 ML IV ONE
[2021-06-06] MEDS: VANCOMYCIN PER PHARMACY IV ONE (00:21)
[2021-06-06] MEDS ORDERED: NOREPINEPHRINE BITARTRATE 4 MG/4 ML VIAL IV ONE ×3 (00:25→10:18)
[2021-06-06] MEDS: VASOPRESSIN 20 UNIT in DEXTROSE 5% IN WATER 99 ML IV SCH ×3 (00:25→08:51)
[2021-06-06] MEDS: NOREPINEPHRINE BITARTRATE 16 MG in 0.9 % SODIUM CHLORIDE 234 ML IV SCH ×2 (00:50→04:32)
[2021-06-06] MEDS ORDERED: SODIUM BICARBONATE VIAL 100 MEQ in DEXTROSE 5% IN WATER 900 ML IV SCH (01:00)
[2021-06-06] MEDS ORDERED: SODIUM BICARBONATE 50 MEQ/50 ML VIAL ONE ×2 (01:17→06:35)
[2021-06-06] MEDS ORDERED: IOPAMIDOL 100 ML BOTTLE IV ONE (01:55)
--- NOTE | 2021-06-06 02:50 | XRay Report ---
CLINICAL INFORMATION: COMPARISON: None. TECHNIQUE: Portable FINDINGS: Endotracheal tube now probably position 3 cm above the angeli OG tube extends to the gastric body. Cardiomediastinal silhouette remains normal. Right IJ Port-A-Cath tip in stable satisfactory position at the SVC right atrial junction. Increased pleural/parenchymal density in the left apex with overall left lung volume loss likely represents fibrosis following treatment of known carcinoma in this region. Residual tumor not excluded. Diffuse bilateral infiltrates are unchanged from exam four hours prior. No effusions. IMPRESSION: Endotracheal tube is now properly positioned 3 cm above the angeli. Other tubes and lines in stable satisfactory position. Mild patchy diffuse bilateral infiltrates unchanged Interpreted and Authenticated by: Ricki Richardson 06/06/21
[2021-06-06] MEDS: LORazepam 2 MG/ML VIAL IV PRN ×2 (02:55→07:00)
--- NOTE | 2021-06-06 02:59 | Cat Scan Report ---
CLINICAL INFORMATION: Decreased mental status COMPARISON: None. TECHNIQUE: 2.5 mm helical slices were obtained in the skull base to vertex. Following reconstruction, axial reformatted images were reviewed at bone and parenchymal windows. The exam was performed using radiation dose optimization techniques including, but not limited to, automated exposure control, adjustment of the mA and/or kV according to patient size and use of iterative reconstruction technique. FINDINGS: The ventricles, sulci, fissures, and cisterns are symmetrically enlarged compatible with mild age-related atrophy. No extra-axial fluid collections are identified. Mild patchy chronic ischemic changes, in the deep cerebral white matter, are expected for age. There is no hemorrhage, mass effect, or edema. Bone windows show no osseous abnormality. IMPRESSION: Mild atrophy and chronic ischemic changes in the deep cerebral white matter-expected for age. No acute findings Interpreted and Authenticated by: Ricki Richardson 06/06/21
[2021-06-06] MEDS: 0.9 % SODIUM CHLORIDE 1,000 ML IV SCH ×2 (03:06→12:07)
--- NOTE | 2021-06-06 03:48 | Cat Scan Report ---
CLINICAL INFORMATION: Dyspnea chest and abdomen pain. History of left upper lobe lung carcinoma COMPARISON: Pretreatment Chest CT 09/20/2020 TECHNIQUE: Enteric contrast was utilized. 80 cc of Isovue-370 were injected intravenously, and 50 seconds later, 0.625 mm helical slices were obtained from the lung apices through the subtrochanteric regions of the femurs. Following reconstruction, 2.5 mm sagittal, coronal and axial reformatted images were processed and reviewed at multiple windows and levels. 7 mm MIP reconstructions were obtained through the lungs to optimize nodule detection.The exam was performed using radiation dose optimization techniques including, but not limited to, automated exposure control, adjustment of the mA and/or kV according to patient size and use of iterative reconstruction technique. FINDINGS: Pulmonary parenchymal windows show the left hilar mass, seen on the pretreatment chest CT eight months prior, is no longer apparent. Vague increased soft tissue density in this region most likely represents posttreatment fibrosis rather than residual tumor. The anterior segment of the left upper lobe, previously atelectatic due to obstruction of the segmental bronchus, has reexpanded with patchy infiltrate in the periphery. There is subtotal consolidated atelectasis/infiltrate of the the lingula and the posterior right lower lobe. Moderate patchy mixed alveolar/ groundglass infiltrates are now seen throughout the right upper middle and lower lobes that most prominent in the posterior right lower lobe. Moderate right and small left pleural effusions noted. The mediastinal windows show the heart is mildly enlarged, but unchanged. Scattered atherosclerotic plaque is seen in the coronary arteries. The pulmonary arteries are normal diameter and well opacified without evidence of embolus. Thoracic aorta is normal diameter with minimal thickening. Mildly enlarged lymph nodes in the lower mediastinum and hilar region range up to 12 mm. This are more likely benign reactive lymph nodes rather than due to metastatic adenopathy. Endotracheal tip is approximately 3 cm above the angeli. OG tube extends through the esophagus: the tip in the mid gastric body. Thyroid is unremarkable. Abdominal images show moderate ascites in the deep true pelvis with smaller amounts of perihepatic, pericholecystic and perisplenic region. Liver shows mild diffuse fatty change. Gallbladder and bile ducts are normal bone CBD is 5 mm. The pancreas is unremarkable. The abdominal aorta is normal diameter. The celiac artery and branches are quite diminutive presumably related atherotic plaque. This has progressed since the previous exam. Both kidneys are normal in size scattered vague low-attenuation foci throughout the parenchyma and moderate perinephric fluid. This is new from the previous exam. While this may be artifact, possibility of pyelonephritis or small infarction be entertained. Moderate bilateral adrenal hyperplasia is stable. The spleen is diminutive-decreased from previous exam. Pelvic images show urine bladder is grossly normal in size. Catheters in satisfactory position in the urinary bladder. Hysterectomy changes noted. Neither ovary identified and presumably surgically absent. Few sigmoid diverticula are appreciated. The remaining large bowel, appendix region small bowel and stomach are grossly normal. Bone windows show no osseous abnormality. IMPRESSION: 1. Densely consolidated atelectasis/infiltrate within the lingula and subtotal atelectasis/infiltrate in the left lower lobe. In addition, there are moderate patchy alveolar infiltrates throughout the right lower and middle lobes. Smaller infiltrates are seen in the peripheral right upper lobe. Moderate right and small left pleural effusions appreciated. Consider aspiration or infection. 2. Since pretreatment chest CT eight months prior, there has been near complete resolution of left upper lobe mass representing known lung carcinoma. Presumably, this was treated with chemotherapy and/or radiation-no thoracotomy changes appreciated. The mass had obstructed the anterior bronchus of the left upper lobe resulting in atelectasis, but this is re-aerated. Mildly enlarged lymph nodes in both alyssa and lower mediastinum are more likely benign reactive lymph nodes rather than metastatic adenopathy. 3. No evidence of pulmonary embolus. 4. Moderate ascites-new from prior examination. 5. Scattered vague low-attenuation foci within both kidneys with perinephric fluid. This could indicate infection or scattered small infarcts. Consider follow-up renal ultrasound to clinically indicated. 6. Diminutive spleen 7. Bilateral adrenal hyperplasia-stable Interpreted and Authenticated by: Ricki Richardson 06/06/21
[2021-06-06] MEDS: 0.9 % SODIUM CHLORIDE 10 ML SYRINGE IV SCH ×3 (05:41→12:49)
[2021-06-06 05:59] LABS: Basophils # (Auto) 0.12 K/mcL (0.00-0.30); Basophils % (Auto) 0.7 % (0.0-2.0); Eosinophils # (Auto) 0 K/mcL (0.00-0.70); Eosinophils % (Auto) 0 % (0.0-7.0); Hematocrit 49.4 % (34.1-44.9); Hemoglobin 14.1 g/dL (11.2-15.7); Lymphocytes # (Auto) 0.35 K/mcL (1.50-4.80); Lymphocytes % (Auto) 2.1 % (15.5-49.0); Mean Cell Volume 96.9 fL (80.0-100.0); Mean Corpuscular HGB Conc 28.5 g/dL (31.0-36.0); Mean Platelet Volume 10.8 fL (7.4-10.4); Neutrophils % (Auto) 94.2 % (38.0-78.0); Platelet Count 126 K/mcL (140-440); Red Cell Distribution Width 18.7 % (11.5-14.5); WBC 16.6 K/mcL (4.5-11.0)
[2021-06-06 06:02] LABS: ALT/SGPT 4282 U/L (<40); AST/SGOT 8586 U/L (<32); Alkaline Phosphatase 131 U/L (39-117); Bilirubin,Direct 1.3 mg/dL (<0.3); Bilirubin,Total 1.6 mg/dL (0.1-1.0); Blood Urea Nitrogen 26 mg/dL (8-23); Calcium 6.7 mg/dL (8.6-10.4); Carbon Dioxide 9 mmol/L (22-30); Chloride 98 mmol/L (96-108); Globulin 2.1 gm/dL (2.2-3.7); Glomerular Filtration Rate 31; Glucose 198 mg/dL (70-105); Lactate Dehydrogenase 8947 U/L (135-225); Phosphorous 9.9 mg/dL (2.5-4.5); Triglycerides 122 mg/dL (<150); Uric Acid 10.8 mg/dL (2.5-8.0)
[2021-06-06] MEDS ORDERED: VANCOMYCIN PER PHARMACY IV SCH (06:15)
[2021-06-06] MEDS: PIPERACILLIN SODIUM/TAZOBACTAM 3.375 GM in DEXTROSE 5% IN WATER 50 ML IV SCH ×2 (06:18→16:43)
[2021-06-06] MEDS ORDERED: INSULIN REGULAR, HUMAN 1 UNIT/0.01 ML UNIT IV ONE (06:25)
[2021-06-06] MEDS ORDERED: CALCIUM CHLORIDE 1,000 MG/10 ML SYRINGE IV ONE (06:25)
[2021-06-06] MEDS ORDERED: DEXTROSE 50% 50 ML VIAL IV ONE ×2 (06:25→06:35)
[2021-06-06] MEDS ORDERED: ALBUTEROL SULFATE 5 MG/ML NEB SOLUTION BOTTLE NEB ONE (06:25)
[2021-06-06] MEDS ORDERED: EPINEPHrine 1 MG/10 ML (1:10,000) SYRINGE IV ONE ×2 (06:30→10:18)
[2021-06-06] MEDS ORDERED: SODIUM BICARBONATE 50 MEQ/50 ML VIAL IV SCH (06:30)
[2021-06-06] MEDS ORDERED: INSULIN REGULAR, HUMAN 1 UNIT/0.01 ML UNIT ONE (06:35)
[2021-06-06] MEDS ORDERED: CALCIUM GLUCONATE 4.65 MEQ/10 ML VIAL ONE (06:36)
[2021-06-06] MEDS ORDERED: 0.9 % SODIUM CHLORIDE 250 ML IV SCH (07:30)
[2021-06-06] MEDS ORDERED: DOPamine 400 MG in PREMIX 1 BAG IV SCH (07:30)
[2021-06-06] MEDS: THYROID PORK 120 MG PO SCH (07:39)
--- NOTE | 2021-06-06 07:43 | Internal Med Progress Note ---
SUBJECTIVE Subjective Patient information: Note initiated : 06/06/21 at 7:24 am Service Date, if different from initiated Date: [] Patient: Calista Dunn a 75 y/o F admitted on 06/03/21 for short of breath. Chief Complaint: [] Interval history: Ms. Dunn is a 75 year old F history of left sided lung cancer, permanent atrial fibrillation, hypothyroidism, p/w shortness of breath and oxygen desaturation. She has had shortness of breath and productive cough with yellow sputum since August 2020 following lung biopsy. Last night, her oxygen saturation was in the 60s on room air, so she decided to come to our ED for further evaluation. She also has mild left sided chest pain since August,, stable. Denies fever, chills, or sweating. She was tested positive for CoVID pneumonia last , 05/25/21. She is fully vaccinated against CoVID pneumonia. Vital signs at ED presentation significant for tachycardia and tachypnea with HR and RR in the 130s and mid 20s, respectively. Labs significant for lack of leukocytosis with WBC 3.6. Serum sodium level 131. CXR and CT chest w/o consistent with CoVID pneumonia without signs of superimposing bacterial infection or pulmonary embolism. 06/04: Afebrile overnight. Blood cultures no growth to date. On 6L/min oxygen overnight and now. Denies SOB. Denies cough or sputum production or wheezing. Denies chest pain. Denies fever, chills, or sweating. On Dexamethasone and Remdesivir. 06/05: Afebrile overnight. Blood cultures no growth to date. Currently on 15L/min nonrebreather oxygen. Tachycardia with HR in the 150s bpm. c/o anxiety and agitation. c/o SOB with cough. Denies chest pain. Denies fever, chills, or sweating. On Dexamethasone and Remdesivir. Will given Cardizem IV push followed by Cardizem drip. Will upgrade to ICU level of care. 06/06: Intubated yesterday evening at 1724 following bradycardia, hypotension, and oxygen desaturation despite high flow oxygen therapy and non-rebreather oxygen therapy. Was subsequently started on Levophed drip, Vasopressin drip, and now Dopamine drip. Minimal urine output since then. Labs suggestive of multi-organ failure. Numerous effort to try to transfer patient to higher level of care but unsuccessful due to bed unavailability and poor prognosis and unstable condition. Spoke with and 2 daughters Rodney and Samantha for updates. Whole body CT suggestives of diffused pneumonia, no sides of intracranial bleeding/stroke, or ischemic bowel. Overall poor prognosis. Constitutional Vitals: Vital Signs Temp Pulse Resp BP Pulse Ox 35.8 C L 63 28 H 77/53 98 06/06/21 06:02 06/06/21 06:40 06/06/21 06:40 06/06/21 06:02 06/06/21 06:40 Period Temp Pulse Resp BP Sys/Thomas Pulse Ox Last 24 Hr 35.2 C-36.6 C 42-67 12-37 34-154/22-141 69-100 Intake and Output 06/05/21 06/06/21 06/06/21 21:59 05:59 13:59 Intake Total 238 3248 45 Output Total 2 60 Balance 236 3188 45 Intake & Output: Intake & Output 06/05/21 06/06/21 06/06/21 21:59 05:59 13:59 Intake Total 238 3248 45 Output Total 2 60 Balance 236 3188 45 Intake: IV 238 3248 45 Sodium Chloride 0.9% 1,000 ml @ 2665 100 mls/hr IV .Q10H [facility] Rx#: [id number] Precedex 400 Mcg/100 ml 0 Dextrose 400 Mcg In Premix 1 Bag @ 0.2 MCG/KG/HR 3.325 mls/ hr IV .Q24H [facility] Rx#:[id number] Levophed 16 mg In Sodium 138 462 45 Chloride 0.9% 234 ml @ 10 MCG/ MIN 9.375 mls/hr IV Q24H [facility] Rx #:[id number] Zosyn 3.375 gm In Dextrose 5% 50 in Water 50 ml @ 100 mls/hr IV Q8H [facility] Rx#:[id number] Actemra 600 mg In Sodium 100 Chloride 0.9% 70 ml @ 100 mls/ hr IV ONCE ONE Rx#:[id number] Vasostrict 20 Unit In Dextrose 71 5% in Water 99 ml @ 0.04 UNIT/ MIN 12 mls/hr IV Q8H [facility] Rx#: [id number] Oral 0 Output: Gastric Drainage 60 NG/OG 60 Urine Catheter Amount 0 # of times incontinent of urine 2 Other: Urine Appearance Uretheral ([place]) Clear Urine Color Uretheral ([place]) Bright Yellow Exam: intubated for mechanical ventilation. Head Head exam: Present atraumatic and normal inspection Eye Eye exam: Present normal appearance ENT ENT exam: Present mucous membranes moist, normal exam and normal external ear exam Additional comments: ET tube and OG tube in place Neck Neck exam: Present normal inspection Respiratory Respiratory exam: Present decreased breath sounds and rhonchi Cardiovascular Cardiovascular exam: Present bradycardia GI/Abdominal GI/Abdominal exam: Present diminished bowel sounds Additional comments: [place] catheter Extremities Exam Additional comments: Cold extremities Back Exam Back exam: Present normal inspection Neurological Exam Neurological exam: Absent alert, altered or oriented X3 Additional comments: comatose Skin Skin exam: Present intact and warm OBJ DATA Labs CBC & Chem 7: 06/06/21 04:30 06/06/21 04:30 Labs: Abnormal Lab Results 06/06/21 06/06/21 06/06/21 04:30 04:30 04:30 WBC 16.6 H Hct 49.4 H MCHC 28.5 L RDW 18.7 H Plt Count 126 L MPV 10.8 H Neut % (Auto) 94.2 H Lymph % (Auto) 2.1 L Lymph # (Auto) 0.35 L Absolute Neutrophils 15.65 H PT INR Fibrinogen D-Dimer VBG Lactic Acid 15.1 H* Sodium Potassium 7.3 H* Carbon Dioxide 9 L* Anion Gap 29.0 H BUN 26 H Creatinine 1.6 H Glucose 198 H Uric Acid 10.8 H Calcium 6.7 L Phosphorus 9.9 H* Ferritin Total Bilirubin 1.6 H Direct Bilirubin 1.3 H GGT 99 H AST ALT 4282 H Alkaline Phosphatase 131 H Lactate Dehydrogenase Troponin T C-Reactive Protein Total Protein 4.1 L Albumin 2.0 L Globulin 2.1 L Albumin/Globulin Ratio 06/06/21 06/05/21 06/05/21 02:57 20:15 20:15 WBC Hct MCHC RDW Plt Count MPV Neut % (Auto) Lymph % (Auto) Lymph # (Auto) Absolute Neutrophils PT INR Fibrinogen D-Dimer VBG Lactic Acid 14.3 H* Sodium Potassium Carbon Dioxide Anion Gap BUN Creatinine Glucose Uric Acid Calcium Phosphorus Ferritin Total Bilirubin Direct Bilirubin GGT AST ALT Alkaline Phosphatase Lactate Dehydrogenase Troponin T 0.24 H* 0.10 H* C-Reactive Protein Total Protein Albumin Globulin Albumin/Globulin Ratio 06/05/21 06/05/21 06/04/21 05:42 05:42 05:56 WBC Hct MCHC RDW 17.5 H Plt Count MPV 11.1 H Neut % (Auto) 89.4 H Lymph % (Auto) 4.4 L Lymph # (Auto) 0.44 L Absolute Neutrophils 8.91 H PT INR Fibrinogen D-Dimer VBG Lactic Acid Sodium Potassium Carbon Dioxide 21 L 20 L Anion Gap BUN Creatinine 0.5 L 0.4 L Glucose 146 H 161 H Uric Acid Calcium Phosphorus Ferritin 1937.0 H Total Bilirubin Direct Bilirubin GGT AST 62 H 59 H ALT 41 H Alkaline Phosphatase Lactate Dehydrogenase 416 H Troponin T C-Reactive Protein 5.60 H Total Protein 5.5 L Albumin 3.1 L 2.8 L Globulin Albumin/Globulin Ratio 06/04/21 06/04/21 06/03/21 05:56 05:42 09:27 WBC Hct MCHC RDW 17.1 H Plt Count MPV 10.9 H Neut % (Auto) 83.7 H Lymph % (Auto) 9.6 L Lymph # (Auto) 0.43 L Absolute Neutrophils PT 17.4 H INR 1.4 H Fibrinogen 440 H D-Dimer 0.56 H VBG Lactic Acid Sodium 128 L Potassium Carbon Dioxide 17 L Anion Gap BUN Creatinine 0.4 L Glucose 172 H Uric Acid Calcium 8.4 L Phosphorus 2.2 L Ferritin Total Bilirubin Direct Bilirubin GGT AST 42 H ALT Alkaline Phosphatase Lactate Dehydrogenase 419 H Troponin T C-Reactive Protein Total Protein Albumin 2.9 L Globulin Albumin/Globulin Ratio 0.9 L Meds: Medications Acetaminophen (Acetaminophen 325 Mg Tablet) 650 mg PO Q6HP PRN; Protocol PRN Reason: Per Pain Protocol/Fever > 101 Hydrocodone Bitart/Acetaminophen (Hydrocodone/Apap 5/325mg Tablet) 2 tab PO BI DP PRN; Protocol PRN Reason: Pain Last Admin: 06/04/21 21:04 Dose: 2 tab Documented by: Albuterol/Ipratropium (Ipratropium/Albuterol 3 Ml Ampul.Neb) 3 ml NEB Q4HRT PRN PRN Reason: Wheezing Last Admin: 06/05/21 02:50 Dose: 3 ml Documented by: Apixaban (Apixaban 5 Mg Tablet) 5 mg PO BID [facility] Last Admin: 06/05/21 19:46 Dose: Not Given Documented by: Dexamethasone (Dexamethasone 10 Mg/Ml Vial) 6 mg IV DAILY [facility] Docusate Sodium (Docusate Sodium 100 Mg Capsule) 100 mg PO BID [facility] Last Admin: 06/05/21 19:46 Dose: Not Given Documented by: Guaifenesin (Guaifenesin/Dextromethorphan Oral Katerine) 10 ml PO Q4HP PRN PRN Reason: Cough REMDESIVIR 100 mg/ Sodium (Chloride) 250 mls @ 500 mls/hr IV DAILY@1000 [facility] Stop: 06/07/21 10:29 Last Infusion: 06/05/21 12:09 Dose: Infused Documented by: Sodium Chloride (Sodium Chloride 0.9%) 1,000 mls @ 100 mls/hr IV .Q10H [facility] Last Admin: 06/06/21 03:06 Dose: Not Given Documented by: Norepinephrine Bitartrate 16 (mg/ Sodium Chloride) 250 mls @ 9.375 mls/hr IV Q24H [facility]; Protocol Last Titration: 06/06/21 06:17 Dose: 106.67 mcg/min, 100 mls/hr Documented by: Sodium Chloride (Sodium Chloride 0.9%) 250 mls @ 20 mls/hr IV .[id number] [facility] Fentanyl 2,500 mcg/ Sodium (Chloride) 250 mls @ 2.5 mls/hr IV Q24H [facility]; Protocol Midazolam HCl 50 mg/ Sodium (Chloride) 100 mls @ 2 mls/hr IV Q24H [facility]; Protocol Sodium Chloride (Sodium Chloride 0.9%) 250 mls @ 20 mls/hr IV .[id number] [facility] Vasopressin 20 unit/ Dextrose 100 mls @ 12 mls/hr IV Q8H [facility]; Protocol Last Admin: 06/06/21 03:07 Dose: Not Given Documented by: Sodium Chloride (Sodium Chloride 0.9%) 250 mls @ 20 mls/hr IV .[id number] [facility] Piperacillin Sod/Tazobactam (Sod 3.375 gm/ Dextrose) 50 mls @ 100 mls/hr IV Q8H [facility]; Protocol Last Admin: 06/06/21 06:18 Dose: 100 mls/hr Documented by: Sodium Bicarbonate 100 meq/ (Dextrose) 1,000 mls @ 50 mls/hr IV Q20H [facility] Last Admin: 06/06/21 01:50 Dose: 50 mls/hr Documented by: Dopamine HCl/Dextrose 400 mg/ (Premix) 250 mls @ 12.468 mls/hr IV .Q20H4M [facility]; Protocol Sodium Chloride (Sodium Chloride 0.9%) 250 mls @ 20 mls/hr IV .[id number] [facility] Lorazepam (Lorazepam 2 Mg/Ml Vial) 1 mg IV Q4-6HP PRN PRN Reason: ANXIETY/SEDATION Last Admin: 06/06/21 02:55 Dose: 1 mg Documented by: Ondansetron HCl (Ondansetron 4 Mg/2 Ml Vial) 4 mg IV Q6HP PRN PRN Reason: Nausea And Vomiting Pantoprazole Sodium (Pantoprazole 40 Mg Vial) 40 mg IV QAMAC [facility] Last Admin: 06/05/21 09:04 Dose: 40 mg Documented by: Thyroid, Pork 120 Mg (Tablet) 1 dose PO ACB [facility] Last Admin: 06/05/21 06:42 Dose: 1 dose Documented by: Senna (Sennosides 1 Tablet) 2 tab PO HS [facility] Last Admin: 06/05/21 19:46 Dose: Not Given Documented by: Sodium Bicarbonate (Sodium Bicarbonate 50 Meq/50 Ml Vial) 50 meq IV UD [facility] Stop: 06/07/21 06:31 Sodium Chloride (0.9 % Sodium Chloride 10 Ml Syringe) 10 ml IV Q8 [facility] Last Admin: 06/06/21 05:41 Dose: 10 ml Documented by: Sodium Chloride (0.9 % Sodium Chloride 10 Ml Syringe) 10 ml IV Q12 [facility] Last Admin: 06/05/21 22:50 Dose: 10 ml Documented by: Sodium Chloride (0.9 % Sodium Chloride 10 Ml Syringe) 10 ml IV UD PRN PRN Reason: Per policy Vancomycin HCl (Vancomycin Per Pharmacy) 1 order IV UD [facility]; Protocol Zolpidem Tartrate (Zolpidem 5 Mg Tablet) 5 mg PO HSP PRN PRN Reason: Insomnia Last Admin: 06/04/21 23:19 Dose: 5 mg Documented by: A/P Assessment and plan (1) Pneumonia due to 2019 novel coronavirus: Status: Acute (2) Lung cancer: Status: Acute (3) Atrial fibrillation with rapid ventricular response: Status: Acute (4) Hyponatremia: Status: Acute (5) Hypothyroidism: Status: Chronic Comment: H/O hyperthyroidism, 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 Neurologic: Not on any sedatives Neuro check q1hr Tylenol PRN fever 2. Cardiovascular: Levophed drip Vasopressin drip Dopamine drip Cardiac monitoring Troponin serial trending 3. Respiratory: Intubated for mechanical ventilation: Volume AC, RR 18, PEEP 12, Vt 400, FiO2 55% Dexamethasone Remdesivir 4. GI: NPO for now IV Protonix 5. ID: Dexamethasone Remdesivir Vancomycin Zosyn Tylenol PRN fever cbc w/ auto diff daily All cultures no growth to date 6. Renal/electrolytes: Hyperkalemia protocols Bicarb drip Normal saline @100cc/hr Continue to trend urine output 7. Hem/Onc: Eliquis h/o lung cancer, follow up with oncologist if patient can make it over this time 8. Overall prognosis/management: Invite family to come to the bedside, will discuss overall poor prognosis and go al of care GI ppx: IV Protonix DVT ppx: Eliquis Code status: Full Prognosis: Poor Disposition: inpatient ICU telemetry Critical Care Time: 1hr Time Spent With Patient Time: Total time spent is greater than 50% in coordination of care (as documented) at patient's floor/unit and/or counseling patient: Total time spent with greater than 50% in coordination of care (as documented) at patient's floor/unit and/or counseling patient:: Greater than 35 minutes QUALITY Stroke Symptom Onset Unknown: No VTE Deep Vein Thrombosis/Pulmonary Embolism Present on Admission: No
[2021-06-06] MEDS: DOCUSATE SODIUM 100 MG CAPSULE PO SCH (07:47)
[2021-06-06] MEDS: PANTOPRAZOLE 40 MG VIAL IV SCH (07:59)
[2021-06-06] MEDS ORDERED: NOREPINEPHRINE BITARTRATE 16 MG in 0.9 % SODIUM CHLORIDE 234 ML IV SCH (09:00)
[2021-06-06] MEDS ORDERED: DEXAMETHASONE 10 MG/ML VIAL IV SCH (09:00)
[2021-06-06] MEDS ORDERED: SODIUM BICARBONATE ADULT 50 MEQ/50 ML SYRINGE IV ONE (10:18)
[2021-06-06] MEDS ORDERED: ROCURONIUM 10 MG/ML ML IV ONE (10:18)
[2021-06-06] MEDS ORDERED: SODIUM CHLORIDE IV ONE (10:18)
[2021-06-06] MEDS ORDERED: ATROPINE SULFATE 1 MG/10 ML SYRINGE IV ONE (10:18)
[2021-06-06] MEDS ORDERED: ETOMIDATE 20 MG/10 ML VIAL IV ONE (10:18)
[2021-06-06] MEDS: 0.9 % SODIUM CHLORIDE 250 ML IV SCH ×6 (10:39→10:42)
[2021-06-06] MEDS: APIXABAN 5 MG TABLET PO SCH (10:41)
[2021-06-06] MEDS: REMDESIVIR 100 MG in 0.9 % SODIUM CHLORIDE 250 ML IV SCH (10:43)
--- NOTE | 2021-06-06 13:16 | Discharge Summary ---
Discharge Provider Provider Patient information: Note initiated : 06/06/21 at 1:15 pm Service Date, if different from initiated Date: [] Patient: Calista Dunn 75 y/o F admitted on 06/03/21 for short of breath. Chief Complaint: [] Date of admission: 06/03/21 01:52 Primary care physician: Charles Mackay M.D., F.A.A.F.P. Consults: 06/05/21 13:10 Consult to Physician [CONS] Routine Comment: Consulting Provider: Bridger Boudreaux Reason For Exam: Physician to Consult Discharge Meds Discharge Medications Home Medications thyroid (pork) 120 mg tablet ([place] Thyroid) 120 mg PO QDAY #90 tab 09/21/20 [Rx Confirmed 06/03/21 Last Taken 06/02/21 09:00] albuterol sulfate 90 mcg/actuation aerosol inhaler (Ventolin HFA) 2 puff INHALATION Q4H PRN #18 g 10/27/20 [Rx Confirmed 06/03/21 Last Taken 05/31/21 09:00] lidocaine-prilocaine 2.5 %-2.5 % topical cream See Rx Instructions .ROUTE .COMPLEX PRN g 12/15/20 [History Confirmed 06/03/21 Last Taken Unknown] apixaban 5 mg tablet 5 mg PO BID tab 05/24/21 [History Confirmed 06/03/21 Last Taken Unknown] hydrocodone 5 mg-acetaminophen 325 mg tablet 1 tab PO BIDP PRN 05/24/21 [History Confirmed 06/03/21 Last Taken 06/02/21 09:00 5/325] COURSE Time Spent with Patient Time attestation: Total time spent providing and/or coordinating discharge services: EXAM Constitutional Vitals: Temp Pulse Resp BP Pulse Ox 37.3 C H 31 L 23 H 73/42 78 L 06/06/21 12:30 06/06/21 10:17 06/06/21 12:30 06/06/21 12:30 06/06/21 12:30 Discharge Data Data Completed and Pending Labs on day of discharge: Labs from last 24 hours 06/06/21 06/06/21 06/06/21 07:00 04:30 04:30 WBC RBC Hgb Hct MCV MCH MCHC RDW Plt Count MPV Neut % (Auto) Lymph % (Auto) [place] % (Auto) Eos % (Auto) Baso % (Auto) Lymph # (Auto) [place] # (Auto) Eos # (Auto) Baso # (Auto) Absolute Neutrophils Differential Comment VBG Lactic Acid 15.1 H* Sodium 136 Potassium 7.3 H* Chloride 98 Carbon Dioxide 9 L* Anion Gap 29.0 H BUN 26 H Creatinine 1.6 H GFR Calculation 31 Glucose 198 H Uric Acid 10.8 H Calcium 6.7 L Phosphorus 9.9 H* Magnesium 2.4 Total Bilirubin 1.6 H Direct Bilirubin 1.3 H GGT 99 H AST 8586 ALT 4282 H Alkaline Phosphatase 131 H Lactate Dehydrogenase 8947 Troponin T 0.27 H* Total Protein 4.1 L Albumin 2.0 L Globulin 2.1 L Albumin/Globulin Ratio 1.0 Triglycerides 122 06/06/21 06/06/21 06/05/21 04:30 02:57 20:15 WBC 16.6 H RBC 5.10 Hgb 14.1 Hct 49.4 H MCV 96.9 MCH 27.6 MCHC 28.5 L RDW 18.7 H Plt Count 126 L MPV 10.8 H Neut % (Auto) 94.2 H Lymph % (Auto) 2.1 L [place] % (Auto) 3.0 Eos % (Auto) 0 Baso % (Auto) 0.7 Lymph # (Auto) 0.35 L [place] # (Auto) 0.50 Eos # (Auto) 0 Baso # (Auto) 0.12 Absolute Neutrophils 15.65 H Differential Comment VBG Lactic Acid Sodium Potassium Chloride Carbon Dioxide Anion Gap BUN Creatinine GFR Calculation Glucose Uric Acid Calcium Phosphorus Magnesium Total Bilirubin Direct Bilirubin GGT AST ALT Alkaline Phosphatase Lactate Dehydrogenase Troponin T 0.24 H* 0.10 H* Total Protein Albumin Globulin Albumin/Globulin Ratio Triglycerides 06/05/21 20:15 WBC RBC Hgb Hct MCV MCH MCHC RDW Plt Count MPV Neut % (Auto) Lymph % (Auto) [place] % (Auto) Eos % (Auto) Baso % (Auto) Lymph # (Auto) [place] # (Auto) Eos # (Auto) Baso # (Auto) Absolute Neutrophils Differential Comment VBG Lactic Acid 14.3 H* Sodium Potassium Chloride Carbon Dioxide Anion Gap BUN Creatinine GFR Calculation Glucose Uric Acid Calcium Phosphorus Magnesium Total Bilirubin Direct Bilirubin GGT AST ALT Alkaline Phosphatase Lactate Dehydrogenase Troponin T Total Protein Albumin Globulin Albumin/Globulin Ratio Triglycerides Preliminary micro results at discharge 06/02/21 21:35 Blood Culture - Preliminary Blood 06/02/21 21:28 Blood Culture - Preliminary Blood Discharge Plan Patient/Caregiver Discharge Instructions Prescriptions: No Action thyroid (pork) [[place] Thyroid] 120 mg tablet 120 mg PO QDAY Qty: 90 3RF Rx Instructions: no substitution - armour thyroid only albuterol sulfate [Ventolin HFA] 90 mcg/actuation HFA aerosol inhaler 2 puff inhalation Q4H PRN (Reason: bronchospasm) Qty: 18 8RF hydrocodone-acetaminophen 5-325 mg tablet 1 tab PO BIDP PRN (Reason: Thyrotoxicosis) 0RF lidocaine-prilocaine 2.5-2.5 % cream See Rx Instructions .ROUTE .COMPLEX PRN (Reason: thyroid) 0RF Label Comments: APPLY GENEROURSY 30 MUINUTES PRIOR TO PORT ACCESS Rx Instructions: 1 g topically to port prior to chemo apixaban 5 mg tablet 5 mg PO BID 0RF Follow Up Plan Follow up with: Charles Mackay MD, FAAFP [Primary Care Provider] - Prognosis: Serious QUALITY VTE Deep Vein Thrombosis/Pulmonary Embolism Present on Admission: No
--- NOTE | 2021-06-06 13:19 | Death Note ---
Discharge Sum: Prov Provider Patient information: Note initiated : 06/06/21 at 1:16 pm Service Date, if different from initiated Date: [] Patient: Calista Dunn 75 y/o F admitted on 06/03/21 for short of breath. Chief Complaint: [] Primary care physician: Charles Mackay M.D., F.A.A.F.P. Attending physician on admission: Bridger Boudreaux Consults: 06/05/21 13:10 Consult to Physician [CONS] Routine Comment: Consulting Provider: Bridger Boudreaux Reason For Exam: Physician to Consult Discharge Sum: Diag Contributing Factors (1) Pneumonia due to 2019 novel coronavirus: (2) Lung cancer: (3) Atrial fibrillation with rapid ventricular response: (4) Hyponatremia: (5) Hypothyroidism: (6) Hyperkalemia: (7) Multi-organ failure with heart failure: Discharge Sum: Summary Date and Time Date of admission: 06/03/21 01:52 Date of : 06/06/21 Time of : 13:15 Summary Details: Patient was intubated, on 3 pressors. Met with family earlier this morning, switched to DNR. Patient lost her pulse, no code initiated. Patient peacefully. Additional Data Confirmation of as documented by pronouncing clinician: no pulse and no respirations Family: contacted Attending/PCP notified?: Yes Attending physician: Bridger Boudreaux MD Was code activated?: No Autopsy requested?: No examiner rating clerk notified?: No Organ bank notified?: No Advance directives?: Yes Hospice patient?: No
--- NOTE | 2021-06-06 13:20 | EKG ---
[facility] Test Date: 2021-06-05 Pat Name: Calista Dunn Department: ICU Room: 120B Gender: Female Respiratory Therapist: HALI : 1945 Requested By: Bridger Boudreaux Order Number: [id number] Reading MD: Ricki Jacob M.D. Measurements Intervals [place] Rate: 53 P: DC: QRS: 79 QRSD: 101 T: 91 QT: 499 QTc: 469 Interpretive Statements WANDERING PACEMAKER with occasional junctional escape beats Low voltage, extremity leads Abnrm T, consider ischemia, anterolateral lds Electronically Signed On 06-06-2021 13:19:58 PST by Ricki Jacob M.D. /[id number]
== END 2021-06-06 15:45 | disposition expired | DRG 208 ==
LOC: ED 16:36 → MEDSUR 06-03 01:52 → ICU 06-03 20:16
PROVIDERS: ADMIT Internal Medicine; ATTEND Internal Medicine